=== PATIENT | male | born 1945 | race Caucasian/White ===

== ENCOUNTER 2016-08-05 10:24 | Inpatient (IN) | payer OTHER ==
--- NOTE | 2016-08-05 11:33 | ED PDOC ---
HPI: Back Chief Complaint (Provider): back pain History Per: Patient (71 y/o male with intractable back pain associated with lower extremity weakness. Patient has been using walker for assistance with walking since May. Patient to have surgery tomorrow am by Dr. Hilario. Has additional h/o DM/HTN/Varicose veins. Recently stopped eloquis for prevention of thrombosis (b/c of varicose veins)) <Mik Glass - Last Filed: 08/05/16 11:36> <Paola Moreno - Last Filed: 08/05/16 11:45> Time Seen by Provider: 08/05/16 10:40 Chief Complaint (Nursing): Back Pain Past Medical History Reviewed: Historical Data, Nursing Documentation, Vital Signs Vital Signs: Last Vital Signs Temp 97 F L 08/05/16 10:30 Pulse 52 L 08/05/16 10:30 Resp BP 129/57 L 08/05/16 10:30 Pulse Ox 98 08/05/16 10:38 - Medical History PMH: Diabetes, HTN - Family History Family History: States: No Known Family Hx <Mik Glass B - Last Filed: 08/05/16 11:36> Vital Signs: Last Vital Signs Temp 97 F L 08/05/16 10:30 Pulse 52 L 08/05/16 10:30 Resp BP 129/57 L 08/05/16 10:30 Pulse Ox 98 08/05/16 11:36 <Paola Moreno - Last Filed: 08/05/16 11:45> - Allergies Allergies/Adverse Reactions: Allergies Allergy/AdvReac Type Severity Reaction Status Date / Time No Known Allergies Allergy Verified 08/05/16 10:37 Review of Systems ROS Statement: Except As Marked, All Systems Reviewed And Found Negative <Mik Glass - Last Filed: 08/05/16 11:36> Physical Exam - Reviewed Nursing Documentation Reviewed: Yes Vital Signs Reviewed: Yes - Physical Exam Appears: Positive for: Well, Non-toxic, No Acute Distress Head Exam: Positive for: ATRAUMATIC, NORMAL INSPECTION, NORMOCEPHALIC Skin: Positive for: Normal Color, Warm, DRY Eye Exam: Positive for: EOMI, Normal appearance, PERRL ENT: Positive for: Normal ENT Inspection Neck: Positive for: Normal, Painless ROM Cardiovascular/Chest: Positive for: Regular Rate, Rhythm Respiratory: Positive for: CNT, Normal Breath Sounds Gastrointestinal/Abdominal: Positive for: Normal Exam, Bowel Sounds, Soft Back: Negative for: Vertebral Tenderness ( paralumbar tenderness) Extremity: Positive for: Normal ROM Neurologic/Psych: Positive for: Alert, Oriented <Mik Glass - Last Filed: 08/05/16 11:36> - ECG O2 Sat by Pulse Oximetry: 98 - Progress ED Course And Treament: d/w Dr. Graf. EKG: sinus bradycardia 51 bpm; no ectopy no acute changes CXR: <Mik Glass - Last Filed: 08/05/16 11:36> - Laboratory Results Result Diagrams: 08/05/16 11:09 <Paola Moreno - Last Filed: 08/05/16 11:45> Medical Decision Making Medical Decision Making: Patient has intractable back pain and scheduled for surgery. <Paola Moreno - Last Filed: 08/05/16 11:45> Disposition - Patient ED Disposition Is Patient to be Admitted: Yes - Disposition Disposition Time: 10:58 - Pt Status Changed To: Hospital Disposition Of: Inpatient - Admit Certification Admit to Inpatient:: After my assessment, the patient will require hospitalization for at least two midnights. This is because of the severity of symptoms shown, intensity of services needed, and/or the medical risk in this patient being treated as an outpatient. <Mik Glass - Last Filed: 08/05/16 11:36> <Paola Moreno - Last Filed: 08/05/16 11:45> - Clinical Impression Clinical Impression: Back pain - Disposition Condition: FAIR
[2016-08-05 11:40] LABS: BASO # 0.1 K/uL (0.0-0.2); BASO % 0.7 % (0.0-2.0); EOS # 0.2 K/uL (0.0-0.7); EOS % 1.9 % (0.0-4.0); HEMATOCRIT 41.7 % (35.0-51.0); LYMPH # 2.3 K/uL (1.0-4.3); LYMPH % 24.1 % (20.0-40.0); MEAN CELL VOLUME 91.4 fl (80.0-94.0); MEAN CORPUSCULAR HEMOGLOBIN 30.9 pg (27.0-31.0); MEAN CORPUSCULAR HGB CONC 33.8 g/dL (33.0-37.0); MEAN PLATELET VOLUME 7.6 fl (7.2-11.7); MONO # 0.9 K/uL (0.0-0.8); MONO % 9.2 % (0.0-10.0); NEUT # 6.2 K/uL (1.8-7.0); NEUT % 64.1 % (50.0-75.0); RED CELL DISTRIBUTION WIDTH 13.9 % (11.5-14.5); WHITE BLOOD COUNT 9.7 K/uL (4.8-10.8)
[2016-08-05 11:46] LABS: ALB/GLOB RATIO 1.2 (1.0-2.1); ALKALINE PHOSPHATASE 83 U/L (38-126); ALT/SGPT 44 U/L (21-72); AST/SGOT 35 U/L (17-59); BILIRUBIN,TOTAL 0.5 mg/dl (0.2-1.3); BLOOD UREA NITROGEN 15 mg/dl (9-20); CALCIUM 9.4 mg/dL (8.4-10.2); CARBON DIOXIDE 29 mmol/L (22-30); CHLORIDE 103 mmol/L (98-107); GFR AFRICAN-AMERICAN > 60; GLUCOSE,RANDOM 113 mg/dL (75-110); POTASSIUM 4.4 MMOL/L (3.6-5.0); SODIUM 142 mmol/l (132-148); TOTAL PROTEIN 8.1 G/DL (6.3-8.2)
[2016-08-05 11:51] LABS: PARTIAL THROMBOPLASTIN TIME 33.3 Seconds (25.6-37.1)
--- NOTE | 2016-08-05 14:01 | RAD ---
HISTORY: routine COMPARISON: No prior. FINDINGS: LUNGS: Mild bibasilar atelectasis ; developing infiltrates could be excluded followup radiographs. Central pulmonary vasculature is slightly increased. PLEURA: No significant pleural effusion identified, no pneumothorax apparent. CARDIOVASCULAR: Heart is enlarged. Aorta is ectatic and uncoiled. OSSEOUS STRUCTURES: Mild degenerative changes of the right shoulder girdle. Questionable old healed fracture deformity right 3rd rib. . VISUALIZED UPPER ABDOMEN: Normal. OTHER FINDINGS: None. IMPRESSION: Mild bibasilar atelectasis ; developing infiltrates could be excluded followup radiographs. Central pulmonary vasculature is slightly increased.
[2016-08-05] MEDS ORDERED: Lidocaine 5% Patch TD PRN (16:25)
[2016-08-05] MEDS ORDERED: Glucagon Recombinant 1 mg Inj IM PRN (16:33)
[2016-08-05] MEDS ORDERED: Dextrose 50% SYRINGE Inj (50 ml) IV PRN (16:33)
[2016-08-05] MEDS ORDERED: Enoxaparin 40 mg Syringe SC SCH (22:00)
[2016-08-06] MEDS ORDERED: Lidocaine 2% w Epi 1:100,000 Inj IJ ONE (07:34)
[2016-08-06] MEDS ORDERED: Bupivacaine HCl 0.5% PF (10 ml) Inj ONE (07:34)
[2016-08-06] MEDS ORDERED: Absorbable Gelatin Sponge Size 100 ONE ×2 (07:34→07:35)
[2016-08-06] MEDS ORDERED: Thrombin Topical 5,000 IU Spray Kit ONE (07:35)
--- NOTE | 2016-08-06 07:50 | CP.PCM.CON ---
History of Present Illness - History of Present Illness History of Present Illness: [address] Hilario was asked to see,pt admitted with intractable LBP radiating to right buttock and RLE with paresthesias,weakness and inability to ambulate x 2-3 mos,pt with ongoing LBP x many years,he is a home health aid, failed conservative management with meds and therapy,MRI showing multilevel lumbar spondylosis worse at L2-3 with severe stenosis, he can only ambulate with a walker and currently unable to work,surgical and non surgical options d/ w pt and Dr. Hilario,due to worsening symptoms,will proceed with a proposed Lumbar laminectomy L2-3,pt was on Eliquis for longstanding afib,denies bowel, bladder incontinance or fall. Review of Systems - Review of Systems Systems not reviewed;Unavailable: Acuity of Condition - Cardiovascular Additional comments: Hx afib,currently in NS[facility],on Eliqis,in past was on Pradaxa,PVD with varicose veins and [place],last LE duplex 05/26 neg - Respiratory Respiratory: Snoring - Musculoskeletal Musculoskeletal: Numbness, Radiating Pain into Limb, Tingling - Neurological Neurological: As Per HPI - Endocrine Additional Comments: Hx DM Past Patient History - Infectious Disease Hx of Infectious Diseases: None - Tetanus Immunizations Tetanus Immunization: Unknown - Past Medical History & Family History Past Medical History?: Yes - Past Social History Smoking Status: Former Smoker Chewing Tobacco Use: No Cigar Use: No Occupation: Disabled HomeHealth Aid Alcohol: Occasional Drugs: Denies Home Situation {Lives}: With Family Domestic Violence: Negative - CARDIAC Hx Cardiac Disorders: Yes - ENDOCRINE/METABOLIC Hx Diabetes Mellitus Type 2: Yes - MUSCULOSKELETAL/RHEUMATOLOGICAL Hx Falls: Yes - PSYCHIATRIC Hx Substance Use: No - SURGICAL HISTORY Other/Comment: varicose vein surgery as per patient. nose SX - ANESTHESIA Hx Anesthesia: Yes Hx Anesthesia Reactions: No Meds Allergies/Adverse Reactions: Allergies Allergy/AdvReac Type Severity Reaction Status Date / Time No Known Allergies Allergy Verified 08/05/16 10:37 - Medications Medications: Current Medications Amlodipine Besylate (Norvasc) 10 mg PO DAILY TARYN Dextrose (Dextrose 50% Inj) 0 ml IV STAT PRN; Protocol PRN Reason: Hyglycemia Protocol Dextrose (Glutose 15) 0 gm PO ONCE PRN; Protocol PRN Reason: Hypoglycemia Protocol Gabapentin (Neurontin) 300 mg PO TID [facility] Last Admin: 08/05/16 17:28 Dose: 300 mg Glucagon (Glucagen Diagnostic Kit) 0 mg IM STAT PRN; Protocol PRN Reason: Hypoglycemia Protocol Insulin Human Lispro (Humalog) 0 units SC ACTID [facility] PRN Reason: Protocol Lidocaine (Lidoderm) 1 ea TD DAILY PRN PRN Reason: BACK PAIN Metformin HCl (Glucophage) 500 mg PO BID [facility] Last Admin: 08/05/16 17:31 Dose: Not Given Metoprolol Tartrate (Lopressor) 50 mg PO BID [facility] Last Admin: 08/05/16 17:29 Dose: Not Given Sitagliptin Phosphate (Januvia) 100 mg PO DAILY [facility] Valsartan (Diovan) 320 mg PO DAILY [facility] Physical Exam - Constitutional Appears: Well, Non-toxic, No Acute Distress - Head Exam Head Exam: ATRAUMATIC, NORMAL INSPECTION, NORMOCEPHALIC - Eye Exam Eye Exam: EOMI, Normal appearance, PERRL - ENT Exam ENT Exam: Mucous Membranes Moist - Neck Exam Neck exam: Positive for: Normal Inspection - Respiratory Exam Respiratory Exam: Clear to Auscultation Bilateral, NORMAL BREATHING PATTERN - Cardiovascular Exam Cardiovascular Exam: REGULAR RHYTHM - GI/Abdominal Exam GI & Abdominal Exam: Normal Bowel Sounds, Soft - Rectal Exam Rectal Exam: Deferred Additional comments: no pelvic paresthesias - Extremities Exam Extremities exam: Positive for: normal inspection, pedal pulses present Additional comments: calves soft,NT - Back Exam Back exam: vertebral tenderness - Neurological Exam Neurological exam: Alert, Oriented x3 Additional comments: Pt antigravity x 4 with BLE weakness,paresthesias RLE,depressed DTR's,neg babinski - Psychiatric Exam Psychiatric exam: Normal Affect, Normal Mood - Skin Skin Exam: Dry, Intact Results - Vital Signs Recent Vital Signs: Last Vital Signs Temp 97.7 F 08/06/16 06:18 Pulse 52 L 08/06/16 06:18 Resp 20 08/06/16 06:18 BP 127/64 08/06/16 06:18 Pulse Ox 95 08/06/16 06:18 - Labs Result Diagrams: 08/07/16 05:00 08/07/16 05:00 Labs: Laboratory Results - last 24 hr 08/05/16 08/05/16 08/05/16 11:09 11:09 11:09 WBC 9.7 RBC 4.56 Hgb 14.1 Hct 41.7 MCV 91.4 MCH 30.9 MCHC 33.8 RDW 13.9 Plt Count 256 MPV 7.6 Neut % (Auto) 64.1 Lymph % (Auto) 24.1 [place] % (Auto) 9.2 Eos % (Auto) 1.9 Baso % (Auto) 0.7 Neut # 6.2 Lymph # 2.3 [place] # 0.9 H Eos # 0.2 Baso # 0.1 PT 10.6 INR 0.9 APTT 33.3 Sodium 142 Potassium 4.4 Chloride 103 Carbon Dioxide 29 Anion Gap 15 BUN 15 Creatinine 0.9 Est GFR ( Amer) > 60 Est GFR (Non-Af Amer) > 60 POC Glucose (mg/dL) Random Glucose 113 H Calcium 9.4 Total Bilirubin 0.5 AST 35 ALT 44 Alkaline Phosphatase 83 Total Protein 8.1 Albumin 4.4 Globulin 3.7 Albumin/Globulin Ratio 1.2 Blood Type Blood Type Confirm Antibody Screen BBK History Checked 08/05/16 08/05/16 08/05/16 11:09 12:50 16:41 WBC RBC Hgb Hct MCV MCH MCHC RDW Plt Count MPV Neut % (Auto) Lymph % (Auto) [place] % (Auto) Eos % (Auto) Baso % (Auto) Neut # Lymph # [place] # Eos # Baso # PT INR APTT Sodium Potassium Chloride Carbon Dioxide Anion Gap BUN Creatinine Est GFR ( Amer) Est GFR (Non-Af Amer) POC Glucose (mg/dL) 85 Random Glucose Calcium Total Bilirubin AST ALT Alkaline Phosphatase Total Protein Albumin Globulin Albumin/Globulin Ratio Blood Type O POSITIVE Blood Type Confirm O POSITIVE Antibody Screen Negative BBK History Checked No verified bt 08/05/16 08/06/16 20:52 05:40 WBC RBC Hgb Hct MCV MCH MCHC RDW Plt Count MPV Neut % (Auto) Lymph % (Auto) [place] % (Auto) Eos % (Auto) Baso % (Auto) Neut # Lymph # [place] # Eos # Baso # PT INR APTT Sodium Potassium Chloride Carbon Dioxide Anion Gap BUN Creatinine Est GFR ( Amer) Est GFR (Non-Af Amer) POC Glucose (mg/dL) 98 114 H Random Glucose Calcium Total Bilirubin AST ALT Alkaline Phosphatase Total Protein Albumin Globulin Albumin/Globulin Ratio Blood Type Blood Type Confirm Antibody Screen BBK History Checked - Impressions Impression: MRI results reviewed by Dr. Hilario Assessment & Plan - Assessment and Plan (Free Text) Assessment: 71 yo male with Multi level lumbar spondylosis,canal stenosis worse at L2-3 with motor weakness and radiculapathy. Plan: pt has failed conservative management worsening inability to ambulate and BLE weakness,risks and benefits of surgery d/w pt,informed symptoms may or may not improve with surgery,expressed understanding and wishes to proceed.
[2016-08-06] MEDS ORDERED: Rocuronium 10 mg/ml (5 ml) ONE (08:00)
[2016-08-06] MEDS ORDERED: Succinylcholine 200 mg/10 ml Inj IV ONE (08:00)
[2016-08-06] MEDS ORDERED: Phenylephrine 10 mg/ml Inj ONE (08:00)
[2016-08-06] MEDS ORDERED: Propofol 10 mg/ml Inj (20 ML) ONE (08:00)
[2016-08-06] MEDS ORDERED: Midazolam 2 MG/2 ML VIAL ONE (08:00)
[2016-08-06] MEDS ORDERED: Lidocaine 4% (Laryng-O-Jet) Kit MM ONE (08:01)
[2016-08-06] MEDS: Insulin Lispro (humaLOG) 100 Units/ml Inj SC SCH ×3 (08:25→18:12)
[2016-08-06] MEDS ORDERED: ePHEDrine 50 mg/ml Inj ONE (08:39)
[2016-08-06 09:12] LABS: RBC URINE 2 /hpf (0-3); URINE BILIRUBIN NEGATIVE (NEGATIVE); URINE BLOOD NEGATIVE (NEGATIVE); URINE COLOR YELLOW (YELLOW); URINE GLUCOSE (UA) NEG (Normal); URINE KETONE NEGATIVE (NEGATIVE); URINE LEUKOCYTE ESTERASE NEG Leu/uL (Negative); URINE PROTEIN NEGATIVE (NEGATIVE); URINE UROBILINOGEN 0.2-1.0 mg/dL (0.2-1.0); WBC URINE < 1 /hpf (0-5)
--- NOTE | 2016-08-06 09:12 | CP.PCM.HP ---
<Aurora Byers - Last Filed: 08/06/16 11:09> History of Present Illness - History of Present Illness History of Present Illness: 71M MHx of HTN, DM, varicose veins p/w worsening lower back pain without bowel or bladder incontinence. Currently patient denies SOB, chest pain, palpitations , N/V, abdominal pain, dysuria. Present on Admission - Present on Admission Any Indicators Present on Admission: No Review of Systems - Musculoskeletal Musculoskeletal: Back Pain Past Patient History - Past Social History Smoking Status: Former Smoker - CARDIAC Hx Cardiac Disorders: Yes - ENDOCRINE/METABOLIC Hx Diabetes Mellitus Type 2: Yes - MUSCULOSKELETAL/RHEUMATOLOGICAL Hx Falls: Yes - PSYCHIATRIC Hx Substance Use: No - SURGICAL HISTORY Other/Comment: varicose vein surgery as per patient. nose SX - ANESTHESIA Hx Anesthesia: Yes Hx Anesthesia Reactions: No Meds Allergies/Adverse Reactions: Allergies Allergy/AdvReac Type Severity Reaction Status Date / Time No Known Allergies Allergy Verified 08/05/16 10:37 Physical Exam - Constitutional Appears: Well, Non-toxic, No Acute Distress - Head Exam Head Exam: ATRAUMATIC, NORMAL INSPECTION - Eye Exam Eye Exam: EOMI, PERRL - ENT Exam ENT Exam: Mucous Membranes Moist, Normal Exam - Respiratory Exam Respiratory Exam: Clear to Auscultation Bilateral, NORMAL BREATHING PATTERN. absent: Rales, Wheezes - Cardiovascular Exam Cardiovascular Exam: REGULAR RHYTHM. absent: JVD - Extremities Exam Extremities exam: Positive for: full ROM, normal capillary refill, pedal pulses present. Negative for: pedal edema - Neurological Exam Neurological exam: Alert, Oriented x3 - Skin Skin Exam: Normal Color, Warm Results - Vital Signs Recent Vital Signs: Last Vital Signs Temp 36.6 C 08/06/16 08:02 Pulse 52 L 08/06/16 08:38 Resp 20 08/06/16 08:02 BP 135/69 08/06/16 08:02 Pulse Ox 98 08/06/16 08:02 - Labs Result Diagrams: 08/05/16 11:09 08/05/16 11:09 Labs: Laboratory Results - last 24 hr 08/05/16 08/05/16 08/05/16 11:09 11:09 11:09 WBC 9.7 RBC 4.56 Hgb 14.1 Hct 41.7 MCV 91.4 MCH 30.9 MCHC 33.8 RDW 13.9 Plt Count 256 MPV 7.6 Neut % (Auto) 64.1 Lymph % (Auto) 24.1 [place] % (Auto) 9.2 Eos % (Auto) 1.9 Baso % (Auto) 0.7 Neut # 6.2 Lymph # 2.3 [place] # 0.9 H Eos # 0.2 Baso # 0.1 PT 10.6 INR 0.9 APTT 33.3 Sodium 142 Potassium 4.4 Chloride 103 Carbon Dioxide 29 Anion Gap 15 BUN 15 Creatinine 0.9 Est GFR ( Amer) > 60 Est GFR (Non-Af Amer) > 60 POC Glucose (mg/dL) Random Glucose 113 H Calcium 9.4 Total Bilirubin 0.5 AST 35 ALT 44 Alkaline Phosphatase 83 Total Protein 8.1 Albumin 4.4 Globulin 3.7 Albumin/Globulin Ratio 1.2 Blood Type Blood Type Confirm Antibody Screen BBK History Checked 08/05/16 08/05/16 08/05/16 11:09 12:50 16:41 WBC RBC Hgb Hct MCV MCH MCHC RDW Plt Count MPV Neut % (Auto) Lymph % (Auto) [place] % (Auto) Eos % (Auto) Baso % (Auto) Neut # Lymph # [place] # Eos # Baso # PT INR APTT Sodium Potassium Chloride Carbon Dioxide Anion Gap BUN Creatinine Est GFR ( Amer) Est GFR (Non-Af Amer) POC Glucose (mg/dL) 85 Random Glucose Calcium Total Bilirubin AST ALT Alkaline Phosphatase Total Protein Albumin Globulin Albumin/Globulin Ratio Blood Type O POSITIVE Blood Type Confirm O POSITIVE Antibody Screen Negative BBK History Checked No verified bt 08/05/16 08/06/16 20:52 05:40 WBC RBC Hgb Hct MCV MCH MCHC RDW Plt Count MPV Neut % (Auto) Lymph % (Auto) [place] % (Auto) Eos % (Auto) Baso % (Auto) Neut # Lymph # [place] # Eos # Baso # PT INR APTT Sodium Potassium Chloride Carbon Dioxide Anion Gap BUN Creatinine Est GFR ( Amer) Est GFR (Non-Af Amer) POC Glucose (mg/dL) 98 114 H Random Glucose Calcium Total Bilirubin AST ALT Alkaline Phosphatase Total Protein Albumin Globulin Albumin/Globulin Ratio Blood Type Blood Type Confirm Antibody Screen BBK History Checked Assessment & Plan - Assessment and Plan (Free Text) Assessment: 71M with L2-3 spondylosis for surgical intervention with laminectomy. - NPO/IVF - anticoagulant, antiplatelet HELD - DM, HTN medications - Surgery with Dr Hilario <Sundeep Garcia - Last Filed: 08/11/16 13:03> Results - Vital Signs Recent Vital Signs: Last Vital Signs Temp 99.3 F 08/11/16 12:50 Pulse 60 08/11/16 12:50 Resp 20 08/11/16 12:50 BP 130/70 08/11/16 12:50 Pulse Ox 97 08/11/16 12:50 - Labs Result Diagrams: 08/08/16 05:05 08/08/16 05:05 Labs: Laboratory Results - last 24 hr 08/10/16 08/10/16 08/11/16 15:40 21:27 05:27 POC Glucose (mg/dL) 121 H 118 H 110 08/11/16 11:22 POC Glucose (mg/dL) 164 H Assessment & Plan (1) Lumbar stenosis Status: Acute (2) Lumbar spondylosis Status: Acute (3) Intractable low back pain Status: Acute (4) Hypertension Status: Acute (5) Diabetes mellitus type 2 in obese Status: Acute (6) DVT (deep venous thrombosis) Status: Acute - Assessment and Plan (Free Text) Plan: I was present during evaluation and discussed with Dr Byers. Sundeep Garcia M.D.
--- NOTE | 2016-08-06 09:50 | CP.PCM.HP ---
History of Present Illness - History of Present Illness History of Present Illness: This is a 71 y/o male with hx of HTn adn DM admitted for intractable back pain. He was tried on conservative measures but to no avail. His intractable back pain worsened and was suggested surgery. He has so much pain that he sought eval at the ER. MRi showed lumbar spondylosis with lumbar stenosis worst at L2L3 level. he has been compliant with his meds. He follows up with a Street Worker. \ Present on Admission - Present on Admission Any Indicators Present on Admission: No History of DVT/PE: No History of Uncontrolled Diabetes: No Urinary Catheter: No Decubitus Ulcer Present: No Review of Systems - Musculoskeletal Musculoskeletal: Arthralgias, Back Pain, Radiating Pain into Limb Past Patient History - Past Social History Smoking Status: Former Smoker - CARDIAC Hx Cardiac Disorders: Yes - ENDOCRINE/METABOLIC Hx Diabetes Mellitus Type 2: Yes - MUSCULOSKELETAL/RHEUMATOLOGICAL Hx Falls: Yes - PSYCHIATRIC Hx Substance Use: No - SURGICAL HISTORY Other/Comment: varicose vein surgery as per patient. nose SX - ANESTHESIA Hx Anesthesia: Yes Hx Anesthesia Reactions: No Meds Allergies/Adverse Reactions: Allergies Allergy/AdvReac Type Severity Reaction Status Date / Time No Known Allergies Allergy Verified 08/05/16 10:37 Physical Exam - Head Exam Head Exam: NORMAL INSPECTION - Eye Exam Eye Exam: Normal appearance - ENT Exam ENT Exam: Mucous Membranes Moist - Respiratory Exam Respiratory Exam: Clear to Auscultation Bilateral, NORMAL BREATHING PATTERN - Cardiovascular Exam Cardiovascular Exam: REGULAR RHYTHM - GI/Abdominal Exam GI & Abdominal Exam: Normal Bowel Sounds Results - Vital Signs Recent Vital Signs: Last Vital Signs Temp 97.9 F 08/06/16 08:02 Pulse 52 L 08/06/16 08:38 Resp 20 08/06/16 08:02 BP 135/69 08/06/16 08:02 Pulse Ox 98 08/06/16 08:02 - Labs Result Diagrams: 08/05/16 11:09 08/05/16 11:09 Labs: Laboratory Results - last 24 hr 08/05/16 08/05/16 08/05/16 11:09 11:09 11:09 WBC 9.7 RBC 4.56 Hgb 14.1 Hct 41.7 MCV 91.4 MCH 30.9 MCHC 33.8 RDW 13.9 Plt Count 256 MPV 7.6 Neut % (Auto) 64.1 Lymph % (Auto) 24.1 [place] % (Auto) 9.2 Eos % (Auto) 1.9 Baso % (Auto) 0.7 Neut # 6.2 Lymph # 2.3 [place] # 0.9 H Eos # 0.2 Baso # 0.1 PT 10.6 INR 0.9 APTT 33.3 Sodium 142 Potassium 4.4 Chloride 103 Carbon Dioxide 29 Anion Gap 15 BUN 15 Creatinine 0.9 Est GFR ( Amer) > 60 Est GFR (Non-Af Amer) > 60 POC Glucose (mg/dL) Random Glucose 113 H Calcium 9.4 Total Bilirubin 0.5 AST 35 ALT 44 Alkaline Phosphatase 83 Total Protein 8.1 Albumin 4.4 Globulin 3.7 Albumin/Globulin Ratio 1.2 Blood Type Blood Type Confirm Antibody Screen BBK History Checked 08/05/16 08/05/16 08/05/16 11:09 12:50 16:41 WBC RBC Hgb Hct MCV MCH MCHC RDW Plt Count MPV Neut % (Auto) Lymph % (Auto) [place] % (Auto) Eos % (Auto) Baso % (Auto) Neut # Lymph # [place] # Eos # Baso # PT INR APTT Sodium Potassium Chloride Carbon Dioxide Anion Gap BUN Creatinine Est GFR ( Amer) Est GFR (Non-Af Amer) POC Glucose (mg/dL) 85 Random Glucose Calcium Total Bilirubin AST ALT Alkaline Phosphatase Total Protein Albumin Globulin Albumin/Globulin Ratio Blood Type O POSITIVE Blood Type Confirm O POSITIVE Antibody Screen Negative BBK History Checked No verified bt 08/05/16 08/06/16 20:52 05:40 WBC RBC Hgb Hct MCV MCH MCHC RDW Plt Count MPV Neut % (Auto) Lymph % (Auto) [place] % (Auto) Eos % (Auto) Baso % (Auto) Neut # Lymph # [place] # Eos # Baso # PT INR APTT Sodium Potassium Chloride Carbon Dioxide Anion Gap BUN Creatinine Est GFR ( Amer) Est GFR (Non-Af Amer) POC Glucose (mg/dL) 98 114 H Random Glucose Calcium Total Bilirubin AST ALT Alkaline Phosphatase Total Protein Albumin Globulin Albumin/Globulin Ratio Blood Type Blood Type Confirm Antibody Screen BBK History Checked Assessment & Plan (1) Lumbar stenosis Status: Acute (2) Lumbar spondylosis Status: Acute (3) Intractable low back pain Status: Acute (4) Hypertension Status: Acute (5) Diabetes mellitus type 2 in obese Status: Acute - Assessment and Plan (Free Text) Plan: NPO Pain meds medically stable for surgery neurosurgical eval will follow up post op
[2016-08-06] MEDS ORDERED: Lactated Ringer's 1,000 ML IV ONE ×2 (10:00→11:11)
[2016-08-06] MEDS ORDERED: Neostigmine Methylsulfate 3mg/3ml Syringe IV ONE (10:50)
[2016-08-06] MEDS ORDERED: HEMOSTATIC MATRIX 10 ML DIS.NEEDLE TOP ONE (11:10)
[2016-08-06] MEDS ORDERED: Bupivacaine HCl 0.5% PF (10 ml) Inj IJ ONE (11:19)
[2016-08-06] MEDS ORDERED: HYDROmorphone 0.5 mg/0.5 ml ISec ONE (11:43)
[2016-08-06] MEDS ORDERED: HYDROmorphone 0.5 mg/0.5 ml ISec IVP PRN (11:45)
[2016-08-06] MEDS ORDERED: Oxycodone/Acetaminophen 5/325 mg Tab PO PRN (14:56)
--- NOTE | 2016-08-06 16:03 | RAD ---
PROCEDURE: Lumbar epidural injections HISTORY: LUMBAR LAMINECTOMY COMPARISON: None TECHNIQUE: Standard FINDINGS: Total fluoroscopic time (continuous mode) utilized during the procedure: 17.7 seconds. Submitted images from the current procedure: 1.0 IMPRESSION: Less than 1 hr fluoroscopic time utilized during performance of the procedure.
[2016-08-06] MEDS: ceFAZolin 1 GM in Sodium Chloride 0.9% 100 ML IVPB SCH (17:48)
[2016-08-07] MEDS: ceFAZolin 1 GM in Sodium Chloride 0.9% 100 ML IVPB SCH ×3 (00:46→18:07)
[2016-08-07] MEDS: Lactated Ringer's 1,000 ML IV SCH ×2 (00:49→04:59)
[2016-08-07 07:02] LABS: BLOOD UREA NITROGEN 14 mg/dl (9-20); CALCIUM 8.9 mg/dL (8.4-10.2); CARBON DIOXIDE 26 mmol/L (22-30); CHLORIDE 105 mmol/L (98-107); GFR AFRICAN-AMERICAN > 60; GLUCOSE,RANDOM 111 mg/dL (75-110); SODIUM 139 mmol/l (132-148)
[2016-08-07 07:05] LABS: BASO % 0.1 % (0.0-2.0); EOS # 0.1 K/uL (0.0-0.7); EOS % 0.5 % (0.0-4.0); HEMATOCRIT 36.7 % (35.0-51.0); LYMPH # 2.6 K/uL (1.0-4.3); LYMPH % 20.9 % (20.0-40.0); MEAN CELL VOLUME 90.9 fl (80.0-94.0); MEAN CORPUSCULAR HEMOGLOBIN 30.3 pg (27.0-31.0); MEAN CORPUSCULAR HGB CONC 33.3 g/dL (33.0-37.0); MEAN PLATELET VOLUME 7.8 fl (7.2-11.7); MONO # 0.9 K/uL (0.0-0.8); MONO % 7.4 % (0.0-10.0); NEUT # 8.8 K/uL (1.8-7.0); NEUT % 71.1 % (50.0-75.0); RED CELL DISTRIBUTION WIDTH 13.6 % (11.5-14.5); WHITE BLOOD COUNT 12.3 K/uL (4.8-10.8)
--- NOTE | 2016-08-07 10:42 | US ---
PROCEDURE: Bilateral lower extremity venous duplex Doppler. HISTORY: post op r/o DVT COMPARISON: None available. TECHNIQUE: Bilateral common femoral, superficial femoral, popliteal and posterior tibial veins were evaluated. Flow was assessed with color Doppler, compressibility, assessment of phasic flow and augmentation response. FINDINGS: There is a nonocclusive thrombus in the right profunda femoris vein. COMMON FEMORAL VEIN: Right CFV: Normal flow and compressibility. Left CFV: Normal flow and compressibility. SUPERFICIAL FEMORAL VEIN: Right SFV: Normal flow and compressibility. Left SFV: Normal flow and compressibility. POPLITEAL VEIN: Right Popliteal: Nonocclusive thrombus in the distal popliteal vein. The proximal and mid popliteal veins are patent. Left Popliteal: Normal flow and compressibility. POSTERIOR TIBIAL VEIN: Right PTV: Normal flow and compressibility. Left PTV: Normal flow and compressibility. OTHER FINDINGS: None. IMPRESSION: 1. Partially occlusive thrombosis in the right distal popliteal and profunda femoris veins. 2. No evidence of deep venous thrombosis in the left lower extremity. Important findings were conveyed to nurse Harper on 08/07/2016 at [address] mri technologist Shira.
--- NOTE | 2016-08-07 11:50 | CARD ---
APPROVED REPORT EKG Measurement Heart [id number] <Conclusion> Sinus bradycardia Otherwise normal ECG
[2016-08-07] MEDS: Insulin Lispro (humaLOG) 100 Units/ml Inj SC SCH ×2 (12:04→17:47)
--- NOTE | 2016-08-07 13:56 | CP.PCM.CON ---
History of Present Illness - History of Present Illness History of Present Illness: Patient is on POD 1 status post lumbar laminectomy. Patient underwent venous ultrasound today as I understand a probationary measure due to him being off anticoagulation and with limited ambulation. Ultrasound was positive for right popliteal and deep femoral thrombosis. Vascular surgery consult was requested for management of right lower extremity DVT. Patient denies known history of DVT in the past although he apparently underwent right leg varicose vein stripping years ago [place] [facility]. He has no pulmonary symptoms. He denies significant pain of calf tenderness in the right lower extremity which is not grossly swollen. Patient has been placed on anticoagulation within last year, per his report, for atrial fibrillation and was taken off blood thinners prior to spine surgery. Review of Systems - Review of Systems Systems not reviewed;Unavailable: Respiratory Distress - Constitutional Constitutional: absent: Fatigue, Malaise - EENT Eyes: absent: Change in Vision, Pain Ears: absent: Ear Pain, Tinnitus, Dizziness Nose/Mouth/Throat: absent: Sore Throat, Throat Swelling, Neck Pain - Cardiovascular Cardiovascular: absent: Chest Pain, Claudication, Diaphoresis, Dyspnea, Leg Edema, Palpitations - Respiratory Respiratory: absent: Cough, Dyspnea, Dyspnea on Exertion, Pain on Inspiration, Pain with Coughing - Gastrointestinal Gastrointestinal: absent: Abdominal Pain, Constipation, Hematemesis, Hematochezia - Genitourinary Genitourinary: absent: Difficulty Urinating, Dysuria, Hematuria - Musculoskeletal Musculoskeletal: Numbness, Tingling. absent: Joint Swelling, Limited Range of Motion, Myalgias - Neurological Neurological: Numbness, Sensory Deficit. absent: Abnormal Gait, Dizziness, Focal Weakness - Psychiatric Psychiatric: absent: Anxiety - Endocrine Endocrine: absent: Polydipsia, Polyphagia, Polyuria - Hematologic/Lymphatic Hematologic: absent: Easy Bruising Past Patient History - Past Social History Smoking Status: Former Smoker - CARDIAC Hx Cardiac Disorders: Yes - ENDOCRINE/METABOLIC Hx Diabetes Mellitus Type 2: Yes - MUSCULOSKELETAL/RHEUMATOLOGICAL Hx Falls: Yes - PSYCHIATRIC Hx Substance Use: No - SURGICAL HISTORY Other/Comment: varicose vein surgery as per patient. nose SX - ANESTHESIA Hx Anesthesia: Yes Hx Anesthesia Reactions: No Meds Allergies/Adverse Reactions: Allergies Allergy/AdvReac Type Severity Reaction Status Date / Time No Known Allergies Allergy Verified 08/05/16 10:37 - Medications Medications: Current Medications Amlodipine Besylate (Norvasc) 10 mg PO DAILY [facility] Last Admin: 08/07/16 08:36 Dose: 10 mg Dextrose (Dextrose 50% Inj) 0 ml IV STAT PRN; Protocol PRN Reason: Hyglycemia Protocol Dextrose (Glutose 15) 0 gm PO ONCE PRN; Protocol PRN Reason: Hypoglycemia Protocol Gabapentin (Neurontin) 300 mg PO TID [facility] Last Admin: 08/07/16 12:04 Dose: 300 mg Glucagon (Glucagen Diagnostic Kit) 0 mg IM STAT PRN; Protocol PRN Reason: Hypoglycemia Protocol Cefazolin Sodium 1 gm/ Sodium (Chloride) 100 mls @ 100 mls/hr IVPB Q8 [facility] Last Admin: 08/07/16 08:40 Dose: 100 mls/hr Insulin Human Lispro (Humalog) 0 units SC ACTID [facility] PRN Reason: Protocol Last Admin: 08/07/16 12:04 Dose: Not Given Lidocaine (Lidoderm) 1 ea TD DAILY PRN PRN Reason: BACK PAIN Metformin HCl (Glucophage) 500 mg PO BID [facility] Last Admin: 08/05/16 17:31 Dose: Not Given Metoprolol Tartrate (Lopressor) 50 mg PO BID [facility] Last Admin: 08/07/16 08:37 Dose: 50 mg Oxycodone/Acetaminophen (Percocet 5/325 Mg Tab) 1 tab PO Q6 PRN PRN Reason: Pain, severe (8-10) Stop: 08/09/16 14:57 Sitagliptin Phosphate (Januvia) 100 mg PO DAILY [facility] Tramadol HCl (Ultram) 50 mg PO Q6 PRN PRN Reason: Pain, moderate (4-7) Valsartan (Diovan) 320 mg PO DAILY [facility] Last Admin: 08/07/16 08:37 Dose: 320 mg Physical Exam - Constitutional Appears: Non-toxic, No Acute Distress - Head Exam Head Exam: NORMAL INSPECTION, NORMOCEPHALIC - Eye Exam Eye Exam: EOMI, Normal appearance, PERRL Pupil Exam: NORMAL ACCOMODATION - ENT Exam ENT Exam: Mucous Membranes Moist, Normal Exam - Neck Exam Neck exam: Positive for: Normal Inspection - Respiratory Exam Respiratory Exam: Clear to Auscultation Bilateral, NORMAL BREATHING PATTERN. absent: Accessory Muscle Use, Respiratory Distress - Cardiovascular Exam Cardiovascular Exam: REGULAR RHYTHM - GI/Abdominal Exam GI & Abdominal Exam: Normal Bowel Sounds - Extremities Exam Extremities exam: Negative for: calf tenderness (right leg is mildly larger than the left with no gross edema present), normal capillary refill, pedal edema , tenderness - Skin Skin Exam: Intact, Normal Color Results - Vital Signs Recent Vital Signs: Last Vital Signs Temp 98.4 F 08/07/16 12:20 Pulse 56 L 08/07/16 12:20 Resp 20 08/07/16 12:20 BP 134/65 08/07/16 12:20 Pulse Ox 95 08/07/16 12:20 - Labs Result Diagrams: 08/07/16 05:00 08/07/16 05:00 Labs: Laboratory Results - last 24 hr 08/06/16 08/06/16 08/07/16 16:18 21:49 05:00 WBC 12.3 H RBC 4.04 L Hgb 12.2 Hct 36.7 MCV 90.9 MCH 30.3 MCHC 33.3 RDW 13.6 Plt Count 229 MPV 7.8 Neut % (Auto) 71.1 Lymph % (Auto) 20.9 [place] % (Auto) 7.4 Eos % (Auto) 0.5 Baso % (Auto) 0.1 Neut # 8.8 H Lymph # 2.6 [place] # 0.9 H Eos # 0.1 Baso # 0.0 Sodium Potassium Chloride Carbon Dioxide Anion Gap BUN Creatinine Est GFR ( Amer) Est GFR (Non-Af Amer) POC Glucose (mg/dL) 154 H 145 H Random Glucose Calcium 08/07/16 08/07/16 08/07/16 05:00 05:29 11:03 WBC RBC Hgb Hct MCV MCH MCHC RDW Plt Count MPV Neut % (Auto) Lymph % (Auto) [place] % (Auto) Eos % (Auto) Baso % (Auto) Neut # Lymph # [place] # Eos # Baso # Sodium 139 Potassium 4.0 Chloride 105 Carbon Dioxide 26 Anion Gap 12 BUN 14 Creatinine 0.9 Est GFR ( Amer) > 60 Est GFR (Non-Af Amer) > 60 POC Glucose (mg/dL) 123 H 138 H Random Glucose 111 H Calcium 8.9 Assessment & Plan - Assessment and Plan (Free Text) Assessment: Right lower extremity ultrasound shows popliteal and femoral DVT. I discussed this situation with patient's spine surgeon and he feels systemic anticoagulation bears significant risk of bleeding in this situation and has to be avoided for the payam being. Of note, patient has no significant right leg swelling or tenderness. There is no evidence of significant compromise of right leg venous return. Due to risk of pulmonary embolism in this essentially non- ambulatory patient with DVT, placement of IVC filter is warranted. Plan: Proceed with IVC filter placement today - Date & Time Date: 08/07/16 Time: 14:32
--- NOTE | 2016-08-07 14:14 | CP.PCM.PCO ---
Assessment & Plan - Assessment and Plan (Free Text) Assessment: Spoke to PA with Dr Hilario, surgeon ok with giving 1 dose of 40mg lovenox today prior to scheduled ivc filter tomorrow. Patient may resume eliquis in 1 week. Discussed with PMD and dose ordered. Patient NPO for IVC with dr patel tomorrow.
--- NOTE | 2016-08-07 15:06 | CP.PCM.PN ---
Subjective - Date & Time of Evaluation Date of Evaluation: 08/07/16 Time of Evaluation: 08:00 - Subjective Subjective: pt c/o minimal incisional pain,pre op RLE pain improvement,residual weakness BLE with paresthesias,cristina PO,voiding,+ flatus,BLE venous duplex ordered per attd secondary to immobility and pt being off Eliquis x 1 week,pt to start prophylactic Lovenox today,denies calf pain,CP,SOB Objective - Vital Signs/Intake and Output Vital Signs (last 24 hours): Temp Pulse Resp BP Pulse Ox 98.4 F 56 L 20 134/65 95 08/07/16 12:20 08/07/16 12:20 08/07/16 12:20 08/07/16 12:20 08/07/16 12:20 Intake and Output: 08/07/16 08/07/16 06:59 18:59 Intake Total 1030 340 Output Total 1065 500 Balance -35 -160 - Medications Medications: Current Medications Amlodipine Besylate (Norvasc) 10 mg PO DAILY [facility] Last Admin: 08/07/16 08:36 Dose: 10 mg Dextrose (Dextrose 50% Inj) 0 ml IV STAT PRN; Protocol PRN Reason: Hyglycemia Protocol Dextrose (Glutose 15) 0 gm PO ONCE PRN; Protocol PRN Reason: Hypoglycemia Protocol Gabapentin (Neurontin) 300 mg PO TID [facility] Last Admin: 08/07/16 12:04 Dose: 300 mg Glucagon (Glucagen Diagnostic Kit) 0 mg IM STAT PRN; Protocol PRN Reason: Hypoglycemia Protocol Cefazolin Sodium 1 gm/ Sodium (Chloride) 100 mls @ 100 mls/hr IVPB Q8 [facility] Last Admin: 08/07/16 08:40 Dose: 100 mls/hr Insulin Human Lispro (Humalog) 0 units SC ACTID [facility] PRN Reason: Protocol Last Admin: 08/07/16 12:04 Dose: Not Given Lidocaine (Lidoderm) 1 ea TD DAILY PRN PRN Reason: BACK PAIN Metformin HCl (Glucophage) 500 mg PO BID [facility] Last Admin: 08/05/16 17:31 Dose: Not Given Metoprolol Tartrate (Lopressor) 50 mg PO BID [facility] Last Admin: 08/07/16 08:37 Dose: 50 mg Oxycodone/Acetaminophen (Percocet 5/325 Mg Tab) 1 tab PO Q6 PRN PRN Reason: Pain, severe (8-10) Stop: 08/09/16 14:57 Sitagliptin Phosphate (Januvia) 100 mg PO DAILY [facility] Tramadol HCl (Ultram) 50 mg PO Q6 PRN PRN Reason: Pain, moderate (4-7) Valsartan (Diovan) 320 mg PO DAILY [facility] Last Admin: 08/07/16 08:37 Dose: 320 mg - Labs Labs: 08/07/16 05:00 08/07/16 05:00 PT 10.6 Seconds (9.8-13.1) 08/05/16 11:09 INR 0.9 (0.9-1.2) 08/05/16 11:09 APTT 33.3 Seconds (25.6-37.1) 08/05/16 11:09 - Constitutional Appears: Well, Non-toxic, No Acute Distress - Head Exam Head Exam: ATRAUMATIC, NORMAL INSPECTION, NORMOCEPHALIC - Eye Exam Eye Exam: EOMI, Normal appearance, PERRL - ENT Exam ENT Exam: Mucous Membranes Moist - Neck Exam Neck Exam: Normal Inspection - Respiratory Exam Respiratory Exam: Clear to Ausculation Bilateral - Cardiovascular Exam Cardiovascular Exam: REGULAR RHYTHM, +S1, +S2 - GI/Abdominal Exam GI & Abdominal Exam: Soft - Extremities Exam Extremities Exam: Normal Inspection Additional comments: neg pramod's,no edema,+2 pulses - Back Exam Additional comments: wound intact,dressing stained with serosanguinos fluid,MAU patent,65cc/12 hours overnight,+ incisional tenderness - Neurological Exam Neurological Exam: Alert, Oriented x3 Additional comments: HARTMAN x 4 antigravity 5/5 motor strength BUE,Quad/hamstring/EHL 4/5,dorsi/plantar 3+ to 4/5,decreased sensation RLE - Psychiatric Exam Psychiatric exam: Normal Affect, Normal Mood - Skin Skin Exam: Dry, Intact Assessment and Plan - Assessment and Plan (Free Text) Assessment: 71 yo male POD#1 Decompressive Lumbar Laminectomy L2-L3 with Posterior Lateral non instrumented fusion/Residual BLE weakness and radiculapathy/RLE DVT/Hx afib currently in NSR off Eliquis x 1 week for surgery/Htn/DM/Hemodynamically stable Plan: results of initial duplex showing large RLE thrombus d/w resident and Dr. Hilario, vascular (Misty)and cardiology(Elian) consults called,pt to have an IVC filter placed today,per Dr. Hilario risks of full anticoagulation too high for spinal hematoma since pt had decompressive lami yesterday,will give Lovenox 40mg SC Abby arthur to start in 1 week,PT held,will cont to follow,all d/w Dr. Hilario and pt's family.
[2016-08-07] MEDS ORDERED: Bupivacaine 0.5% Inj(30mL) ONE (16:02)
[2016-08-07] MEDS ORDERED: Lidocaine 1% Inj (20ml) ONE (16:02)
[2016-08-07] MEDS ORDERED: Iohexol 300 100 ML IJ ONE (16:03)
[2016-08-07] MEDS ORDERED: Lidocaine 1% Inj (20ml) IJ ONE (16:55)
[2016-08-07] MEDS ORDERED: Iohexol 300 10 ML IJ ONE (17:00)
--- NOTE | 2016-08-07 18:11 | PCM.SURG1 ---
Surgeon's Initial Post Op Note - Surgeon's Notes Surgeon: Dr. Wick Reading Interventionist: none Type of Anesthesia: Local Pre-Operative Diagnosis: Popliteal vein thrombosis Operative Findings: same Post-Operative Diagnosis: same Operation Performed: Insertion of IVC filter Specimen/Specimens Removed: ivc filter Estimated Blood Loss: EBL {In ML}: 10 Blood Products Given: N/A Drains Used: No Drains Post-Op Condition: Good Date of Surgery/Procedure: 08/07/16 Time of Surgery/Procedure: 18:11
[2016-08-07] MEDS ORDERED: Enoxaparin 80 mg Syringe SC SCH (21:00)
[2016-08-08] MEDS: ceFAZolin 1 GM in Sodium Chloride 0.9% 100 ML IVPB SCH ×3 (00:47→16:40)
[2016-08-08] MEDS: Insulin Lispro (humaLOG) 100 Units/ml Inj SC SCH ×3 (06:54→16:26)
[2016-08-08 07:10] LABS: HEMATOCRIT 37.6 % (35.0-51.0); MEAN CELL VOLUME 90.5 fl (80.0-94.0); MEAN CORPUSCULAR HEMOGLOBIN 30.9 pg (27.0-31.0); MEAN CORPUSCULAR HGB CONC 34.2 g/dL (33.0-37.0); RED CELL DISTRIBUTION WIDTH 13.7 % (11.5-14.5); WHITE BLOOD COUNT 11.2 K/uL (4.8-10.8)
[2016-08-08 07:31] LABS: BLOOD UREA NITROGEN 11 mg/dl (9-20); CALCIUM 8.9 mg/dL (8.4-10.2); CARBON DIOXIDE 26 mmol/L (22-30); CHLORIDE 105 mmol/L (98-107); GFR AFRICAN-AMERICAN > 60; GLUCOSE,RANDOM 106 mg/dL (75-110); SODIUM 139 mmol/l (132-148)
--- NOTE | 2016-08-08 07:33 | CP.PCM.PN ---
<Ирина Cerrato - Last Filed: 08/08/16 07:30> Subjective - Date & Time of Evaluation Date of Evaluation: 08/08/16 Time of Evaluation: 07:30 - Subjective Subjective: Vascular Surgery - Dr. Jay Pt S&EKera PIKE. Pt doing well post-operatively. He denies any discomfort at the groin site from IVCFilter yesterday. He is tolerating diet. No F/C, SOB/ Cp. Objective - Vital Signs/Intake and Output Vital Signs (last 24 hours): Temp Pulse Resp BP Pulse Ox 98.7 F 58 L 20 124/71 95 08/08/16 05:00 08/08/16 05:00 08/08/16 05:00 08/08/16 05:00 08/08/16 05:00 Intake and Output: 08/08/16 08/08/16 06:59 18:59 Intake Total 990 Balance 990 - Medications Medications: Current Medications Amlodipine Besylate (Norvasc) 10 mg PO DAILY [facility] Last Admin: 08/07/16 08:36 Dose: 10 mg Dextrose (Dextrose 50% Inj) 0 ml IV STAT PRN; Protocol PRN Reason: Hyglycemia Protocol Dextrose (Glutose 15) 0 gm PO ONCE PRN; Protocol PRN Reason: Hypoglycemia Protocol Gabapentin (Neurontin) 300 mg PO TID [facility] Last Admin: 08/07/16 17:55 Dose: 300 mg Glucagon (Glucagen Diagnostic Kit) 0 mg IM STAT PRN; Protocol PRN Reason: Hypoglycemia Protocol Cefazolin Sodium 1 gm/ Sodium (Chloride) 100 mls @ 100 mls/hr IVPB Q8 [facility] Last Admin: 08/08/16 00:47 Dose: 100 mls/hr Insulin Human Lispro (Humalog) 0 units SC ACTID [facility] PRN Reason: Protocol Last Admin: 08/08/16 06:54 Dose: Not Given Lidocaine (Lidoderm) 1 ea TD DAILY PRN PRN Reason: BACK PAIN Metformin HCl (Glucophage) 500 mg PO BID [facility] Last Admin: 08/05/16 17:31 Dose: Not Given Metoprolol Tartrate (Lopressor) 50 mg PO BID [facility] Last Admin: 08/07/16 18:03 Dose: Not Given Oxycodone/Acetaminophen (Percocet 5/325 Mg Tab) 1 tab PO Q6 PRN PRN Reason: Pain, severe (8-10) Stop: 08/09/16 14:57 Sitagliptin Phosphate (Januvia) 100 mg PO DAILY [facility] Tramadol HCl (Ultram) 50 mg PO Q6 PRN PRN Reason: Pain, moderate (4-7) Last Admin: 08/07/16 18:05 Dose: 50 mg Valsartan (Diovan) 320 mg PO DAILY [facility] Last Admin: 08/07/16 08:37 Dose: 320 mg - Labs Labs: 08/07/16 05:00 08/07/16 05:00 PT 10.6 Seconds (9.8-13.1) 08/05/16 11:09 INR 0.9 (0.9-1.2) 08/05/16 11:09 APTT 33.3 Seconds (25.6-37.1) 08/05/16 11:09 - Constitutional Appears: No Acute Distress - Head Exam Head Exam: ATRAUMATIC, NORMAL INSPECTION, NORMOCEPHALIC - Eye Exam Eye Exam: Normal appearance - Respiratory Exam Respiratory Exam: NORMAL BREATHING PATTERN. absent: Respiratory Distress - GI/Abdominal Exam GI & Abdominal Exam: Soft. absent: Tenderness - Extremities Exam Extremities Exam: absent: Tenderness Additional comments: Right groin site with dressing in place, C/D/I, no hematoma - Neurological Exam Neurological Exam: Alert, Oriented x3 - Psychiatric Exam Psychiatric exam: Normal Affect, Normal Mood - Skin Skin Exam: Dry, Intact Assessment and Plan - Assessment and Plan (Free Text) Assessment: 71 yo M w/ popliteal vein thrombus, S/P IVCF -Groin site C/D/I with no hematoma -Continue care as per medical team -Anticoagulation to be determined by Dr. Hilario and medical team -No further surgical intervention -Surgery will sign off, thank you for allowing us to participate in the care of this patient -Pt may followup in office with Dr Jay to follow the DVT DW Dr. Misty Cerrato PGY2 <Arpit Jay - Last Filed: 08/08/16 14:09> Subjective - Subjective Subjective: Patient seen and examined. No immediate issues. Groin venous access site shows no evidence of complications. Right leg clinically is unchanged with no worsening swelling or tenderness. Continue current care. I will follow patient after discharge as an outpatient to monitor his DVT and manage IVC filter. Objective - Vital Signs/Intake and Output Vital Signs (last 24 hours): Temp Pulse Resp BP Pulse Ox 98.2 F 59 L 18 143/67 94 L 08/08/16 12:25 08/08/16 12:25 08/08/16 12:25 08/08/16 12:25 08/08/16 12:25 Intake and Output: 08/08/16 08/08/16 06:59 18:59 Intake Total 990 Balance 990 - Medications Medications: Current Medications Amlodipine Besylate (Norvasc) 10 mg PO DAILY [facility] Last Admin: 08/08/16 08:48 Dose: 10 mg Dextrose (Dextrose 50% Inj) 0 ml IV STAT PRN; Protocol PRN Reason: Hyglycemia Protocol Dextrose (Glutose 15) 0 gm PO ONCE PRN; Protocol PRN Reason: Hypoglycemia Protocol Gabapentin (Neurontin) 300 mg PO TID [facility] Last Admin: 08/08/16 12:50 Dose: 300 mg Glucagon (Glucagen Diagnostic Kit) 0 mg IM STAT PRN; Protocol PRN Reason: Hypoglycemia Protocol Cefazolin Sodium 1 gm/ Sodium (Chloride) 100 mls @ 100 mls/hr IVPB Q8 [facility] Last Admin: 08/08/16 08:52 Dose: 100 mls/hr Insulin Human Lispro (Humalog) 0 units SC ACTID [facility] PRN Reason: Protocol Last Admin: 08/08/16 12:51 Dose: 1 unit Lidocaine (Lidoderm) 1 ea TD DAILY PRN PRN Reason: BACK PAIN Metformin HCl (Glucophage) 500 mg PO BID [facility] Last Admin: 08/05/16 17:31 Dose: Not Given Metoprolol Tartrate (Lopressor) 50 mg PO BID [facility] Last Admin: 08/08/16 08:47 Dose: Not Given Oxycodone/Acetaminophen (Percocet 5/325 Mg Tab) 1 tab PO Q6 PRN PRN Reason: Pain, severe (8-10) Stop: 08/09/16 14:57 Sitagliptin Phosphate (Januvia) 100 mg PO DAILY [facility] Tramadol HCl (Ultram) 50 mg PO Q6 PRN PRN Reason: Pain, moderate (4-7) Last Admin: 08/07/16 18:05 Dose: 50 mg Valsartan (Diovan) 320 mg PO DAILY [facility] Last Admin: 08/08/16 08:47 Dose: 320 mg - Labs Labs: 08/08/16 05:05 08/08/16 05:05 PT 10.6 Seconds (9.8-13.1) 08/05/16 11:09 INR 0.9 (0.9-1.2) 08/05/16 11:09 APTT 33.3 Seconds (25.6-37.1) 08/05/16 11:09
[2016-08-08] MEDS ORDERED: Enoxaparin 40 mg Syringe SC ONE (09:00)
--- NOTE | 2016-08-08 10:30 | CP.PCM.CON ---
History of Present Illness - History of Present Illness History of Present Illness: This is a 71 yrs old male who has had back problems for a long time He has had spondylitis for a long time and was unable to walk because of radicular pain from the back down the leg. He also has A Fib and was on anticoagulants for the same. He underwent a laminectomy of the L1 L2 vertebrae and the anticoagulant was held. He developed swelling in both lower extremities.A venous doppler showed a DVT in the left leg but the right one was normal. Since he could not be started on anticoagulants so soon after the surgery a IVC filter was placed. In a few days he will go back to the [facility]. Past Patient History - Infectious Disease Hx of Infectious Diseases: None - Tetanus Immunizations Tetanus Immunization: Unknown - Past Medical History & Family History Past Medical History?: Yes - Past Social History Smoking Status: Former Smoker Chewing Tobacco Use: No Cigar Use: No Occupation: Dis[employer] Alcohol: Occasional Drugs: Denies Home Situation {Lives}: With Family Domestic Violence: Negative - CARDIAC Hx Cardiac Disorders: Yes - ENDOCRINE/METABOLIC Hx Diabetes Mellitus Type 2: Yes - MUSCULOSKELETAL/RHEUMATOLOGICAL Hx Falls: Yes - PSYCHIATRIC Hx Substance Use: No - SURGICAL HISTORY Other/Comment: varicose vein surgery as per patient. nose SX - ANESTHESIA Hx Anesthesia: Yes Hx Anesthesia Reactions: No Meds Allergies/Adverse Reactions: Allergies Allergy/AdvReac Type Severity Reaction Status Date / Time No Known Allergies Allergy Verified 08/05/16 10:37 - Medications Medications: Current Medications Amlodipine Besylate (Norvasc) 10 mg PO DAILY [facility] Last Admin: 08/08/16 08:48 Dose: 10 mg Dextrose (Dextrose 50% Inj) 0 ml IV STAT PRN; Protocol PRN Reason: Hyglycemia Protocol Dextrose (Glutose 15) 0 gm PO ONCE PRN; Protocol PRN Reason: Hypoglycemia Protocol Gabapentin (Neurontin) 300 mg PO TID [facility] Last Admin: 08/08/16 08:48 Dose: 300 mg Glucagon (Glucagen Diagnostic Kit) 0 mg IM STAT PRN; Protocol PRN Reason: Hypoglycemia Protocol Cefazolin Sodium 1 gm/ Sodium (Chloride) 100 mls @ 100 mls/hr IVPB Q8 [facility] Last Admin: 08/08/16 08:52 Dose: 100 mls/hr Insulin Human Lispro (Humalog) 0 units SC ACTID [facility] PRN Reason: Protocol Last Admin: 08/08/16 06:54 Dose: Not Given Lidocaine (Lidoderm) 1 ea TD DAILY PRN PRN Reason: BACK PAIN Metformin HCl (Glucophage) 500 mg PO BID [facility] Last Admin: 08/05/16 17:31 Dose: Not Given Metoprolol Tartrate (Lopressor) 50 mg PO BID [facility] Last Admin: 08/08/16 08:47 Dose: Not Given Oxycodone/Acetaminophen (Percocet 5/325 Mg Tab) 1 tab PO Q6 PRN PRN Reason: Pain, severe (8-10) Stop: 08/09/16 14:57 Sitagliptin Phosphate (Januvia) 100 mg PO DAILY [facility] Tramadol HCl (Ultram) 50 mg PO Q6 PRN PRN Reason: Pain, moderate (4-7) Last Admin: 08/07/16 18:05 Dose: 50 mg Valsartan (Diovan) 320 mg PO DAILY [facility] Last Admin: 08/08/16 08:47 Dose: 320 mg Physical Exam - Additional Findings Additional findings: Physical exam; Alert, well oriented in no acute distress neck; Supple, no adenopathy Chest; Clear, nmo rales or rhonchi Heart; RSR, n murmur,no murmur Abd; Soft, no mass, no h/s megaly Slight edema both lower extremities. Results - Vital Signs Recent Vital Signs: Last Vital Signs Temp 98.1 F 08/08/16 08:13 Pulse 56 L 08/08/16 08:48 Resp 18 08/08/16 08:13 BP 131/74 08/08/16 08:48 Pulse Ox 94 L 08/08/16 08:13 - Labs Result Diagrams: 08/08/16 05:05 08/08/16 05:05 Labs: Laboratory Results - last 24 hr 08/07/16 08/07/16 08/07/16 11:03 16:14 21:19 WBC RBC Hgb Hct MCV MCH MCHC RDW Plt Count Sodium Potassium Chloride Carbon Dioxide Anion Gap BUN Creatinine Est GFR ( Amer) Est GFR (Non-Af Amer) POC Glucose (mg/dL) 138 H 107 129 H Random Glucose Calcium 08/08/16 08/08/16 08/08/16 05:05 05:05 05:33 WBC 11.2 H RBC 4.16 L Hgb 12.9 Hct 37.6 MCV 90.5 MCH 30.9 MCHC 34.2 RDW 13.7 Plt Count 216 Sodium 139 Potassium 4.0 Chloride 105 Carbon Dioxide 26 Anion Gap 11 BUN 11 Creatinine 0.9 Est GFR ( Amer) > 60 Est GFR (Non-Af Amer) > 60 POC Glucose (mg/dL) 98 Random Glucose 106 Calcium 8.9 Assessment & Plan - Assessment and Plan (Free Text) Assessment: Impression; DVT after a L1and L2 laminectomy.Also h/o A Fib. Plan: Plan; Pt has a filter at this time, which should help until he can be started back on the on the Eliquis..I would discuss with the neurosurgeon how long he would like the pt to be off the anticoagulants. - Date & Time Date: 08/08/16 Time: 10:50
--- NOTE | 2016-08-08 12:58 | CARD ---
APPROVED REPORT EXAM: Two-dimensional and M-mode echocardiogram with Doppler and color Doppler. Other Information Quality : AverageRhythm : NSR INDICATION Atrial Fibrillation 2D DIMENSIONS IVSd1.53 (0.7-1.1cm)LVDd5.75 (3.9-5.9cm) LVOT Diameter2.34 (1.8-2.4cm)PWd0.83 (0.7-1.1cm) IVSs1.35 (0.8-1.2cm)LVDs5.55 (2.5-4.0cm) FS (%) 3.5 %PWs1.34 (0.8-1.2cm) M-Mode DIMENSIONS Left Atrium (MM)4.44 (2.5-4.0cm)IVSd1.05 (0.7-1.1cm) Aortic Root3.60 (2.2-3.7cm)LVDd5.80 (4.0-5.6cm) Aortic Cusp Exc.2.10 (1.5-2.0cm)PWd1.12 (0.7-1.1cm) IVSs1.75 cmFS (%) 54 % LVDs2.65 (2.0-3.8cm)PWs1.50 cm Mitral Valve MV E Eapqzebg80.8cm/sMV DECEL [id number] A Bpjrigcm86.0cm/s MV [id number]/A ratio1.8MVA (PHT)3.21cm2 TDI E/Lateral E'0.0E/Medial E'0.0 LEFT VENTRICLE The left ventricle is normal size. There is normal left ventricular wall thickness. The left ventricular function is normal. The left ventricular ejection fraction is 55% There is normal LV segmental wall motion. The left ventricular diastolic function is normal. No left ventricle thrombus noted on this study. There is no ventricular septal defect visualized. There is no left ventricular aneurysm. There is no mass noted in the left ventricle. RIGHT VENTRICLE The right ventricle is normal size. There is normal right ventricular wall thickness. The right ventricular systolic function is normal. ATRIA The left atrium is mildly dilated. The right atrium size is normal. The interatrial septum is intact with no evidence for an atrial septal defect. AORTIC VALVE The aortic valve is normal in structure and function. No aortic regurgitation is present. There is no aortic valvular stenosis. There is no aortic valvular vegetation. MITRAL VALVE The mitral valve is normal in structure and function. There is no evidence of mitral valve prolapse. There is no mitral valve stenosis. There is no mitral valve regurgitation noted. TRICUSPID VALVE The tricuspid valve is normal in structure and function. There is no tricuspid valve regurgitation noted. There is no tricuspid valve prolapse or vegetation. There is no tricuspid valve stenosis. PULMONIC VALVE The pulmonary valve is normal in structure and function. There is no pulmonic valvular regurgitation. There is no pulmonic valvular stenosis. GREAT VESSELS The aortic root is normal in size. The ascending aorta is normal in size. The IVC is normal in size and collapses >50% with inspiration. PERICARDIAL EFFUSION The pericardium appears normal. There is no pleural effusion. <Conclusion> Normal LV Function Mild Left Atrial Enlargement
--- NOTE | 2016-08-08 14:44 | RAD ---
PROCEDURE: Intraoperative Fluoroscopy. HISTORY: Fluoroscopy FINDINGS: Fluoroscopic assistance was provided for IVC filter placement. Please
--- NOTE | 2016-08-08 18:05 | CP.PCM.CON ---
History of Present Illness - History of Present Illness History of Present Illness: I was asked to see patient by Dr. Graf. Patient is a 71 year old male with PMH HTN, paroxysmal atrial fibrillation, who is s/p lumbar spinal surgery. The patient was previously on Eliquis for anticoagulation for atrial fibrillation. This was held to undergo surgery. The patient underwent successful surgery and postoepratively developed a DVT. IVC filter was placed by vascular surgery. The patient remains off anticoagulation due to recent surgery. Review of Systems - Constitutional Constitutional: absent: As Per HPI, Anorexia, Chills, Daytime Sleepiness, Excessive Sweating, Fatigue, Fever, Frequent Falls, Headache, Increased Appetite , Lethargy, Malaise, Night Sweats, Snoring, Sleep Apnea, Weight Gain, Weight Loss, Weakness, Other - EENT Eyes: absent: As Per HPI, Blind Spots, Blurred Vision, Change in Vision, Decreased Night Vision, Diplopia, Discharge, Dry Eye, Exophthalmos, Floaters, Irritation, Itchy Eyes, Loss of Peripheral Vision, Pain, Photophobia, Requires Corrective Lenses, Sees Flashes, Spots in Vision, Tunnel Vision, Other Visual Disturbances, Loss of Vision, Other Ears: absent: As Per HPI, Decreased Hearing, Ear Discharge, Ear Pain, Tinnitus, Abnormal Hearing, Disequilibrium, Dizziness, Other Nose/Mouth/Throat: absent: As Per HPI, Epistaxis, Nasal Congestion, Nasal Discharge, Nasal Obstruction, Nasal Trauma, Nose Pain, Post Nasal Drip, Sinus Pain, Sinus Pressure, Bleeding Gums, Change in Voice, Dental Pain, Dry Mouth, Dysphagia, Halitosis, Hoarsness, Lip Swelling, Mouth Lesions, Mouth Pain, Odynophagia, Sore Throat, Throat Swelling, Tongue Swelling, Facial Pain, Neck Pain, Neck Mass, Other - Cardiovascular Cardiovascular: absent: As Per HPI, Acrocyanosis, Chest Pain, Chest Pain at Rest , Chest Pain with Activity, Claudication, Diaphoresis, Dyspnea, Dyspnea on Exertion, Edema, Irregular Heart Rhythm, Pain Radiating to Arm/Neck/Jaw, Leg Edema, Leg Ulcers, Lightheadedness, Orthopnea, Palpitations, Paroxysmal Nocturnal Dyspnea, Pedal Edema, Radiating Pain, Rapid Heart Rate, Slow Heart Rate, Syncope, Other - Respiratory Respiratory: absent: As Per HPI, Cough, Dyspnea, Hemoptysis, Dyspnea on Exertion , Wheezing, Snoring, Stridor, Pain on Inspiration, Chest Congestion, Excessive Mucous Production, Change in Mucous Color, Pain with Coughing, Other - Gastrointestinal Gastrointestinal: absent: As Per HPI, Abdominal Pain, Belching, Bloating, Change in Bowel Habits, Change in Stool Character, Coffee Ground Emesis, Constipation, Cramping, Diarrhea, Dyspepsia, Dysphagia, Early Satiety, Excessive Flatus, Fecal Incontinence, Heartburn, Hematemesis, Hematochezia, Loose Stools, Melena, Nausea, Odynophagia, Temesmus, Vomiting, Other - Genitourinary Genitourinary: absent: As Per HPI, Change in Urinary Stream, Difficulty Urinating, Dysuria, Flank Pain, Hematuria, Pyuria, Nocturia, Urinary Incontinence, Urinary Frequency, Urinary Hesitance, Urinary Urgency, Voiding Freq/Small Amts, Freq UTI, Hx Renal/Bladder Calculi, Hx /Renal Surgery, Bladder Distension, Other - Musculoskeletal Additional comments: back pain - Integumentary Integumentary: absent: As Per HPI, Acne, Alopecia, Bleeding Lesions, Change in Hair, Change in Nails, Change in Pigmentation, Changing Lesions, Dry Skin, Erythema, Furuncle, Hirsutism, Lesions, New Lesions, Non-Healing Lesions, Photosensitivity, Pruritus, Rash, Skin Pain, Skin Ulcer, Sores, Striae, Swelling , Unusual Bruising, Wounds, Jaundice, Other - Neurological Neurological: absent: As Per HPI, Abnormal Gait, Abnormal Hearing, Abnormal Movements, Abnormal Speech, Behavioral Changes, Burning Sensations, Confusion, Convulsions, Disequilibrium, Dizziness, Numbness, Focal Weakness, Frequent Falls , Headaches, Lack of Coordination, Loss of Vision, Memory Loss, Paresthesias, Radicular Pain, Restless Legs, Sensory Deficit, Syncope, Tingling, Tremor, Vertigo, Weakness, Other Visual Disturbances, Other - Psychiatric Psychiatric: absent: As Per HPI, Abnormal Sleep Pattern, Anhedonia, Anxiety, Auditory Hallucinations, Behavioral Changes, Change in Appetite, Change in Libido, Confusion, Depression, Difficulty Concentrating, Hallucinations, Homicidal Ideation, Hopelessness, Irritability, Memory Loss, Mood Swings, Panic Attacks, Paranoia, Suicidal Ideation, Visual Hallucinations, Tactile Hallucinations, Other - Endocrine Endocrine: absent: As Per HPI, Change in Body Appearance, Change in Libido, Cold Intolorance, Deepening of Voice, Excessive Sweating, Fatigue, Flushing, Heat Intolorance, Increase in Ring/Shoe/Hat Size, Palpitations, Polydipsia, Polyphagia, Polyuria, Other - Hematologic/Lymphatic Hematologic: absent: As Per HPI, Easy Bleeding, Easy Bruising, Lymphadenopathy, Other Past Patient History - Infectious Disease Hx of Infectious Diseases: None - Tetanus Immunizations Tetanus Immunization: Unknown - Past Medical History & Family History Past Medical History?: Yes - Past Social History Smoking Status: Former Smoker Chewing Tobacco Use: No Cigar Use: No Occupation: Disabled Home[employer] Alcohol: Occasional Drugs: Denies Home Situation {Lives}: With Family Domestic Violence: Negative - CARDIAC Hx Cardiac Disorders: Yes - ENDOCRINE/METABOLIC Hx Diabetes Mellitus Type 2: Yes - MUSCULOSKELETAL/RHEUMATOLOGICAL Hx Falls: Yes - PSYCHIATRIC Hx Substance Use: No - SURGICAL HISTORY Other/Comment: varicose vein surgery as per patient. nose SX - ANESTHESIA Hx Anesthesia: Yes Hx Anesthesia Reactions: No Meds Allergies/Adverse Reactions: Allergies Allergy/AdvReac Type Severity Reaction Status Date / Time No Known Allergies Allergy Verified 08/05/16 10:37 - Medications Medications: Current Medications Amlodipine Besylate (Norvasc) 10 mg PO DAILY [facility] Last Admin: 08/08/16 08:48 Dose: 10 mg Dextrose (Dextrose 50% Inj) 0 ml IV STAT PRN; Protocol PRN Reason: Hyglycemia Protocol Dextrose (Glutose 15) 0 gm PO ONCE PRN; Protocol PRN Reason: Hypoglycemia Protocol Gabapentin (Neurontin) 300 mg PO TID [facility] Last Admin: 08/08/16 16:40 Dose: 300 mg Glucagon (Glucagen Diagnostic Kit) 0 mg IM STAT PRN; Protocol PRN Reason: Hypoglycemia Protocol Cefazolin Sodium 1 gm/ Sodium (Chloride) 100 mls @ 100 mls/hr IVPB Q8 [facility] Last Admin: 08/08/16 16:40 Dose: 100 mls/hr Insulin Human Lispro (Humalog) 0 units SC ACTID [facility] PRN Reason: Protocol Last Admin: 08/08/16 16:26 Dose: Not Given Lidocaine (Lidoderm) 1 ea TD DAILY PRN PRN Reason: BACK PAIN Metformin HCl (Glucophage) 500 mg PO BID [facility] Last Admin: 08/05/16 17:31 Dose: Not Given Metoprolol Tartrate (Lopressor) 50 mg PO BID [facility] Last Admin: 08/08/16 16:41 Dose: 50 mg Oxycodone/Acetaminophen (Percocet 5/325 Mg Tab) 1 tab PO Q6 PRN PRN Reason: Pain, severe (8-10) Stop: 08/09/16 14:57 Sitagliptin Phosphate (Januvia) 100 mg PO DAILY [facility] Tramadol HCl (Ultram) 50 mg PO Q6 PRN PRN Reason: Pain, moderate (4-7) Last Admin: 08/07/16 18:05 Dose: 50 mg Valsartan (Diovan) 320 mg PO DAILY [facility] Last Admin: 08/08/16 08:47 Dose: 320 mg Physical Exam - Constitutional Appears: Non-toxic - Head Exam Head Exam: NORMAL INSPECTION - Eye Exam Eye Exam: Normal appearance - ENT Exam ENT Exam: Mucous Membranes Moist - Neck Exam Neck exam: Positive for: Full Rom - Respiratory Exam Respiratory Exam: NORMAL BREATHING PATTERN - Cardiovascular Exam Cardiovascular Exam: REGULAR RHYTHM - GI/Abdominal Exam GI & Abdominal Exam: Normal Bowel Sounds - Rectal Exam Rectal Exam: Deferred - Extremities Exam Extremities exam: Positive for: pedal edema - Back Exam Back exam: NORMAL INSPECTION - Neurological Exam Neurological exam: Alert, Oriented x3 - Psychiatric Exam Psychiatric exam: Normal Affect - Skin Skin Exam: Normal Color Results - Vital Signs Recent Vital Signs: Last Vital Signs Temp 98.8 F 08/08/16 16:26 Pulse 70 08/08/16 16:41 Resp 18 08/08/16 16:26 BP 129/54 L 08/08/16 16:41 Pulse Ox 95 08/08/16 16:26 - Labs Result Diagrams: 08/08/16 05:05 08/08/16 05:05 Labs: Laboratory Results - last 24 hr 08/07/16 08/08/16 08/08/16 21:19 05:05 05:05 WBC 11.2 H RBC 4.16 L Hgb 12.9 Hct 37.6 MCV 90.5 MCH 30.9 MCHC 34.2 RDW 13.7 Plt Count 216 Sodium 139 Potassium 4.0 Chloride 105 Carbon Dioxide 26 Anion Gap 11 BUN 11 Creatinine 0.9 Est GFR ( Amer) > 60 Est GFR (Non-Af Amer) > 60 POC Glucose (mg/dL) 129 H Random Glucose 106 Calcium 8.9 08/08/16 08/08/16 08/08/16 05:33 11:03 16:04 WBC RBC Hgb Hct MCV MCH MCHC RDW Plt Count Sodium Potassium Chloride Carbon Dioxide Anion Gap BUN Creatinine Est GFR ( Amer) Est GFR (Non-Af Amer) POC Glucose (mg/dL) 98 189 H 98 Random Glucose Calcium - EKG Data EKG Interpreted by: Myself EKG shows normal: Sinus rhythm Assessment & Plan (1) Paroxysmal atrial fibrillation Assessment and Plan: currently in sinus rhythm. echocardiogram reveals normal left ventricular function. Recomemnd restarting Eliquis when is stable form a surgical standpoint. Status: Acute (2) DVT (deep venous thrombosis) Assessment and Plan: off Eliquis. IVC filter placed Status: Acute (3) Hypertension Assessment and Plan: blood pressure control Status: Acute
--- NOTE | 2016-08-08 18:05 | CP.PCM.CON ---
History of Present Illness - History of Present Illness History of Present Illness: Patient seen/examined. full consult to follow agree with holding anticaogulation. s/p IVC filter. no cardiac arrhythmia noted Past Patient History - Infectious Disease Hx of Infectious Diseases: None - Tetanus Immunizations Tetanus Immunization: Unknown - Past Medical History & Family History Past Medical History?: Yes - Past Social History Smoking Status: Former Smoker Chewing Tobacco Use: No Cigar Use: No Occupation: Disabled [employer] Alcohol: Occasional Drugs: Denies Home Situation {Lives}: With Family Domestic Violence: Negative - CARDIAC Hx Cardiac Disorders: Yes - ENDOCRINE/METABOLIC Hx Diabetes Mellitus Type 2: Yes - MUSCULOSKELETAL/RHEUMATOLOGICAL Hx Falls: Yes - PSYCHIATRIC Hx Substance Use: No - SURGICAL HISTORY Other/Comment: varicose vein surgery as per patient. nose SX - ANESTHESIA Hx Anesthesia: Yes Hx Anesthesia Reactions: No Meds Allergies/Adverse Reactions: Allergies Allergy/AdvReac Type Severity Reaction Status Date / Time No Known Allergies Allergy Verified 08/05/16 10:37 - Medications Medications: Current Medications Amlodipine Besylate (Norvasc) 10 mg PO DAILY [facility] Last Admin: 08/08/16 08:48 Dose: 10 mg Dextrose (Dextrose 50% Inj) 0 ml IV STAT PRN; Protocol PRN Reason: Hyglycemia Protocol Dextrose (Glutose 15) 0 gm PO ONCE PRN; Protocol PRN Reason: Hypoglycemia Protocol Gabapentin (Neurontin) 300 mg PO TID [facility] Last Admin: 08/08/16 16:40 Dose: 300 mg Glucagon (Glucagen Diagnostic Kit) 0 mg IM STAT PRN; Protocol PRN Reason: Hypoglycemia Protocol Cefazolin Sodium 1 gm/ Sodium (Chloride) 100 mls @ 100 mls/hr IVPB Q8 [facility] Last Admin: 08/08/16 16:40 Dose: 100 mls/hr Insulin Human Lispro (Humalog) 0 units SC ACTID [facility] PRN Reason: Protocol Last Admin: 08/08/16 16:26 Dose: Not Given Lidocaine (Lidoderm) 1 ea TD DAILY PRN PRN Reason: BACK PAIN Metformin HCl (Glucophage) 500 mg PO BID [facility] Last Admin: 08/05/16 17:31 Dose: Not Given Metoprolol Tartrate (Lopressor) 50 mg PO BID [facility] Last Admin: 08/08/16 16:41 Dose: 50 mg Oxycodone/Acetaminophen (Percocet 5/325 Mg Tab) 1 tab PO Q6 PRN PRN Reason: Pain, severe (8-10) Stop: 08/09/16 14:57 Sitagliptin Phosphate (Januvia) 100 mg PO DAILY [facility] Tramadol HCl (Ultram) 50 mg PO Q6 PRN PRN Reason: Pain, moderate (4-7) Last Admin: 08/07/16 18:05 Dose: 50 mg Valsartan (Diovan) 320 mg PO DAILY [facility] Last Admin: 08/08/16 08:47 Dose: 320 mg Results - Vital Signs Recent Vital Signs: Last Vital Signs Temp 98.8 F 08/08/16 16:26 Pulse 70 08/08/16 16:41 Resp 18 08/08/16 16:26 BP 129/54 L 08/08/16 16:41 Pulse Ox 95 08/08/16 16:26 - Labs Result Diagrams: 08/08/16 05:05 08/08/16 05:05 Labs: Laboratory Results - last 24 hr 08/07/16 08/08/16 08/08/16 21:19 05:05 05:05 WBC 11.2 H RBC 4.16 L Hgb 12.9 Hct 37.6 MCV 90.5 MCH 30.9 MCHC 34.2 RDW 13.7 Plt Count 216 Sodium 139 Potassium 4.0 Chloride 105 Carbon Dioxide 26 Anion Gap 11 BUN 11 Creatinine 0.9 Est GFR ( Amer) > 60 Est GFR (Non-Af Amer) > 60 POC Glucose (mg/dL) 129 H Random Glucose 106 Calcium 8.9 08/08/16 08/08/16 08/08/16 05:33 11:03 16:04 WBC RBC Hgb Hct MCV MCH MCHC RDW Plt Count Sodium Potassium Chloride Carbon Dioxide Anion Gap BUN Creatinine Est GFR ( Amer) Est GFR (Non-Af Amer) POC Glucose (mg/dL) 98 189 H 98 Random Glucose Calcium
[2016-08-09] MEDS: ceFAZolin 1 GM in Sodium Chloride 0.9% 100 ML IVPB SCH ×3 (00:20→17:00)
[2016-08-09] MEDS: Insulin Lispro (humaLOG) 100 Units/ml Inj SC SCH ×3 (08:33→16:30)
[2016-08-10] MEDS: ceFAZolin 1 GM in Sodium Chloride 0.9% 100 ML IVPB SCH ×3 (01:28→17:28)
[2016-08-10] MEDS: Insulin Lispro (humaLOG) 100 Units/ml Inj SC SCH ×3 (09:03→17:37)
--- NOTE | 2016-08-10 15:35 | CP.PCM.PN ---
Subjective - Date & Time of Evaluation Date of Evaluation: 08/09/16 Time of Evaluation: 14:00 - Subjective Subjective: patient has no chest pain or dyspnea. Objective - Vital Signs/Intake and Output Vital Signs (last 24 hours): Temp Pulse Resp BP Pulse Ox 98.2 F 55 L 18 118/64 96 08/10/16 12:08 08/10/16 12:08 08/10/16 12:08 08/10/16 12:08 08/10/16 12:08 Intake and Output: 08/10/16 08/10/16 06:59 18:59 Intake Total 950 Output Total 20 Balance 930 - Medications Medications: Current Medications Amlodipine Besylate (Norvasc) 10 mg PO DAILY [facility] Last Admin: 08/10/16 09:00 Dose: 10 mg Dextrose (Dextrose 50% Inj) 0 ml IV STAT PRN; Protocol PRN Reason: Hyglycemia Protocol Dextrose (Glutose 15) 0 gm PO ONCE PRN; Protocol PRN Reason: Hypoglycemia Protocol Gabapentin (Neurontin) 300 mg PO TID [facility] Last Admin: 08/10/16 08:59 Dose: 300 mg Glucagon (Glucagen Diagnostic Kit) 0 mg IM STAT PRN; Protocol PRN Reason: Hypoglycemia Protocol Cefazolin Sodium 1 gm/ Sodium (Chloride) 100 mls @ 100 mls/hr IVPB Q8 [facility] Last Admin: 08/10/16 09:02 Dose: 100 mls/hr Insulin Human Lispro (Humalog) 0 units SC ACTID [facility] PRN Reason: Protocol Last Admin: 08/10/16 09:03 Dose: Not Given Lidocaine (Lidoderm) 1 ea TD DAILY PRN PRN Reason: BACK PAIN Metformin HCl (Glucophage) 500 mg PO BID [facility] Last Admin: 08/05/16 17:31 Dose: Not Given Metoprolol Tartrate (Lopressor) 50 mg PO BID [facility] Last Admin: 08/10/16 08:58 Dose: 50 mg Sitagliptin Phosphate (Januvia) 100 mg PO DAILY [facility] Valsartan (Diovan) 320 mg PO DAILY [facility] Last Admin: 08/10/16 08:57 Dose: 320 mg - Labs Labs: 08/08/16 05:05 08/08/16 05:05 PT 10.6 Seconds (9.8-13.1) 08/05/16 11:09 INR 0.9 (0.9-1.2) 08/05/16 11:09 APTT 33.3 Seconds (25.6-37.1) 08/05/16 11:09 - Constitutional Appears: Non-toxic - Head Exam Head Exam: NORMAL INSPECTION - Eye Exam Eye Exam: Normal appearance - ENT Exam ENT Exam: Mucous Membranes Moist - Neck Exam Neck Exam: Full ROM - Respiratory Exam Respiratory Exam: NORMAL BREATHING PATTERN - Cardiovascular Exam Cardiovascular Exam: REGULAR RHYTHM - GI/Abdominal Exam GI & Abdominal Exam: Normal Bowel Sounds - Rectal Exam Rectal Exam: Deferred - Extremities Exam Extremities Exam: absent: Pedal Edema - Back Exam Back Exam: NORMAL INSPECTION - Neurological Exam Neurological Exam: Alert - Psychiatric Exam Psychiatric exam: Normal Affect - Skin Skin Exam: Normal Color Assessment and Plan (1) Paroxysmal atrial fibrillation Assessment & Plan: in sinus rhythm. will continue to hold anticoagulation. Status: Acute (2) DVT (deep venous thrombosis) Status: Acute (3) Hypertension Assessment & Plan: blood pressure is cotnrolled Status: Acute
[2016-08-11] MEDS: ceFAZolin 1 GM in Sodium Chloride 0.9% 100 ML IVPB SCH ×2 (01:07→08:53)
[2016-08-11] MEDS: Insulin Lispro (humaLOG) 100 Units/ml Inj SC SCH ×2 (08:39→13:04)
--- NOTE | 2016-08-11 11:05 | CP.PCM.PCO ---
Assessment/Plan - Assessment and Plan (Free Text) Plan: MAU drain removed with no complications. Patient for dc today and follow up with neurosurgery with Dr Hilario and guerita clemente on 08.14.2016
[2016-08-11 12:50] VITALS: BP 130/70; PULSE 60; RESP 20; TEMP 99.3; O2SAT 97
--- NOTE | 2016-08-11 12:51 | CP.PCM.PN ---
Subjective - Date & Time of Evaluation Date of Evaluation: 09/06/16 Time of Evaluation: 12:52 - Subjective Subjective: Patient is stable in bed. Had a recent US of lower ext which showed DVT right, He had some pain on the leg even prior to surgery. he was on Eliquis for atrial fibrillation which was discontinued prior to surgery. Objective - Vital Signs/Intake and Output Vital Signs (last 24 hours): Temp Pulse Resp BP Pulse Ox 99.3 F 60 20 130/70 97 08/11/16 12:50 08/11/16 12:50 08/11/16 12:50 08/11/16 12:50 08/11/16 12:50 Intake and Output: 08/11/16 08/11/16 06:59 18:59 Intake Total 850 950 Output Total 10 0 Balance 840 950 - Medications Medications: Current Medications Amlodipine Besylate (Norvasc) 10 mg PO DAILY [facility] Last Admin: 08/11/16 08:41 Dose: 10 mg Dextrose (Dextrose 50% Inj) 0 ml IV STAT PRN; Protocol PRN Reason: Hyglycemia Protocol Dextrose (Glutose 15) 0 gm PO ONCE PRN; Protocol PRN Reason: Hypoglycemia Protocol Famotidine (Pepcid) 40 mg PO DAILY [facility] Last Admin: 08/11/16 08:00 Dose: 40 mg Gabapentin (Neurontin) 300 mg PO TID [facility] Last Admin: 08/11/16 08:40 Dose: 300 mg Glucagon (Glucagen Diagnostic Kit) 0 mg IM STAT PRN; Protocol PRN Reason: Hypoglycemia Protocol Cefazolin Sodium 1 gm/ Sodium (Chloride) 100 mls @ 100 mls/hr IVPB Q8 [facility] Last Admin: 08/11/16 08:53 Dose: 100 mls/hr Insulin Human Lispro (Humalog) 0 units SC ACTID [facility] PRN Reason: Protocol Last Admin: 08/11/16 08:39 Dose: Not Given Lidocaine (Lidoderm) 1 ea TD DAILY PRN PRN Reason: BACK PAIN Metformin HCl (Glucophage) 500 mg PO BID [facility] Last Admin: 08/05/16 17:31 Dose: Not Given Metoprolol Tartrate (Lopressor) 50 mg PO BID [facility] Last Admin: 08/11/16 08:53 Dose: 50 mg Sitagliptin Phosphate (Januvia) 100 mg PO DAILY [facility] Valsartan (Diovan) 320 mg PO DAILY [facility] Last Admin: 08/11/16 08:38 Dose: 320 mg - Labs Labs: 08/08/16 05:05 08/08/16 05:05 PT 10.6 Seconds (9.8-13.1) 08/05/16 11:09 INR 0.9 (0.9-1.2) 08/05/16 11:09 APTT 33.3 Seconds (25.6-37.1) 08/05/16 11:09 - Head Exam Head Exam: NORMAL INSPECTION - Eye Exam Eye Exam: Normal appearance - ENT Exam ENT Exam: Mucous Membranes Moist - Cardiovascular Exam Cardiovascular Exam: REGULAR RHYTHM - GI/Abdominal Exam GI & Abdominal Exam: Normal Bowel Sounds - Extremities Exam Additional comments: slght tenderness only on the right leg - Neurological Exam Neurological Exam: Awake, Oriented x3 - Psychiatric Exam Psychiatric exam: Normal Mood Assessment and Plan (1) Lumbar stenosis Status: Acute (2) Lumbar spondylosis Status: Acute (3) Intractable low back pain Status: Acute (4) Hypertension Status: Acute (5) Diabetes mellitus type 2 in obese Status: Acute (6) DVT (deep venous thrombosis) Status: Acute - Assessment and Plan (Free Text) Plan: cont meds for filter insertion. cont meds tc DR Hilario informed. will get IR for filter.,
--- NOTE | 2016-08-11 12:58 | CP.PCM.PN ---
Subjective - Date & Time of Evaluation Date of Evaluation: 08/08/16 Time of Evaluation: 10:00 - Subjective Subjective: Patient remains stable Has no leg pain No fever. Objective - Vital Signs/Intake and Output Vital Signs (last 24 hours): Temp Pulse Resp BP Pulse Ox 99.3 F 60 20 130/70 97 08/11/16 12:50 08/11/16 12:50 08/11/16 12:50 08/11/16 12:50 08/11/16 12:50 Intake and Output: 08/11/16 08/11/16 06:59 18:59 Intake Total 850 950 Output Total 10 0 Balance 840 950 - Medications Medications: Current Medications Amlodipine Besylate (Norvasc) 10 mg PO DAILY [facility] Last Admin: 08/11/16 08:41 Dose: 10 mg Dextrose (Dextrose 50% Inj) 0 ml IV STAT PRN; Protocol PRN Reason: Hyglycemia Protocol Dextrose (Glutose 15) 0 gm PO ONCE PRN; Protocol PRN Reason: Hypoglycemia Protocol Famotidine (Pepcid) 40 mg PO DAILY [facility] Last Admin: 08/11/16 08:00 Dose: 40 mg Gabapentin (Neurontin) 300 mg PO TID [facility] Last Admin: 08/11/16 08:40 Dose: 300 mg Glucagon (Glucagen Diagnostic Kit) 0 mg IM STAT PRN; Protocol PRN Reason: Hypoglycemia Protocol Cefazolin Sodium 1 gm/ Sodium (Chloride) 100 mls @ 100 mls/hr IVPB Q8 [facility] Last Admin: 08/11/16 08:53 Dose: 100 mls/hr Insulin Human Lispro (Humalog) 0 units SC ACTID [facility] PRN Reason: Protocol Last Admin: 08/11/16 08:39 Dose: Not Given Lidocaine (Lidoderm) 1 ea TD DAILY PRN PRN Reason: BACK PAIN Metformin HCl (Glucophage) 500 mg PO BID [facility] Last Admin: 08/05/16 17:31 Dose: Not Given Metoprolol Tartrate (Lopressor) 50 mg PO BID [facility] Last Admin: 08/11/16 08:53 Dose: 50 mg Sitagliptin Phosphate (Januvia) 100 mg PO DAILY [facility] Valsartan (Diovan) 320 mg PO DAILY [facility] Last Admin: 08/11/16 08:38 Dose: 320 mg - Labs Labs: 08/08/16 05:05 08/08/16 05:05 PT 10.6 Seconds (9.8-13.1) 08/05/16 11:09 INR 0.9 (0.9-1.2) 08/05/16 11:09 APTT 33.3 Seconds (25.6-37.1) 08/05/16 11:09 - Eye Exam Eye Exam: Normal appearance - ENT Exam ENT Exam: Mucous Membranes Moist - Cardiovascular Exam Cardiovascular Exam: REGULAR RHYTHM - GI/Abdominal Exam GI & Abdominal Exam: Normal Bowel Sounds - Neurological Exam Neurological Exam: Awake, Oriented x3 Assessment and Plan (1) Lumbar stenosis Status: Acute (2) Lumbar spondylosis Status: Acute (3) Intractable low back pain Status: Acute (4) Hypertension Status: Acute (5) Diabetes mellitus type 2 in obese Status: Acute (6) DVT (deep venous thrombosis) Status: Acute - Assessment and Plan (Free Text) Plan: Cont meds Cont tx Cont PT pain meds monitor drain
--- NOTE | 2016-08-11 13:00 | CP.PCM.PN ---
Subjective - Date & Time of Evaluation Date of Evaluation: 08/09/16 Time of Evaluation: 10:00 - Subjective Subjective: Patient is doing well Had a filter inserted. Able to ambulate Has no leg pain Has no SOB. Objective - Vital Signs/Intake and Output Vital Signs (last 24 hours): Temp Pulse Resp BP Pulse Ox 99.3 F 60 20 130/70 97 08/11/16 12:50 08/11/16 12:50 08/11/16 12:50 08/11/16 12:50 08/11/16 12:50 Intake and Output: 08/11/16 08/11/16 06:59 18:59 Intake Total 850 950 Output Total 10 0 Balance 840 950 - Medications Medications: Current Medications Amlodipine Besylate (Norvasc) 10 mg PO DAILY [facility] Last Admin: 08/11/16 08:41 Dose: 10 mg Dextrose (Dextrose 50% Inj) 0 ml IV STAT PRN; Protocol PRN Reason: Hyglycemia Protocol Dextrose (Glutose 15) 0 gm PO ONCE PRN; Protocol PRN Reason: Hypoglycemia Protocol Famotidine (Pepcid) 40 mg PO DAILY [facility] Last Admin: 08/11/16 08:00 Dose: 40 mg Gabapentin (Neurontin) 300 mg PO TID [facility] Last Admin: 08/11/16 08:40 Dose: 300 mg Glucagon (Glucagen Diagnostic Kit) 0 mg IM STAT PRN; Protocol PRN Reason: Hypoglycemia Protocol Cefazolin Sodium 1 gm/ Sodium (Chloride) 100 mls @ 100 mls/hr IVPB Q8 [facility] Last Admin: 08/11/16 08:53 Dose: 100 mls/hr Insulin Human Lispro (Humalog) 0 units SC ACTID [facility] PRN Reason: Protocol Last Admin: 08/11/16 08:39 Dose: Not Given Lidocaine (Lidoderm) 1 ea TD DAILY PRN PRN Reason: BACK PAIN Metformin HCl (Glucophage) 500 mg PO BID [facility] Last Admin: 08/05/16 17:31 Dose: Not Given Metoprolol Tartrate (Lopressor) 50 mg PO BID [facility] Last Admin: 08/11/16 08:53 Dose: 50 mg Sitagliptin Phosphate (Januvia) 100 mg PO DAILY [facility] Valsartan (Diovan) 320 mg PO DAILY [facility] Last Admin: 08/11/16 08:38 Dose: 320 mg - Labs Labs: 08/08/16 05:05 08/08/16 05:05 PT 10.6 Seconds (9.8-13.1) 08/05/16 11:09 INR 0.9 (0.9-1.2) 08/05/16 11:09 APTT 33.3 Seconds (25.6-37.1) 08/05/16 11:09 - Head Exam Head Exam: NORMAL INSPECTION - Eye Exam Eye Exam: Normal appearance - ENT Exam ENT Exam: Mucous Membranes Moist - Cardiovascular Exam Cardiovascular Exam: REGULAR RHYTHM - GI/Abdominal Exam GI & Abdominal Exam: Normal Bowel Sounds - Neurological Exam Neurological Exam: Awake, Oriented x3 - Psychiatric Exam Psychiatric exam: Normal Mood Assessment and Plan (1) Lumbar stenosis Status: Acute (2) Lumbar spondylosis Status: Acute (3) Intractable low back pain Status: Acute (4) Hypertension Status: Acute (5) Diabetes mellitus type 2 in obese Status: Acute (6) DVT (deep venous thrombosis) Status: Acute - Assessment and Plan (Free Text) Plan: Con tmeds Cont tx Cont PT
--- NOTE | 2016-08-11 13:02 | CP.PCM.PN ---
Subjective - Date & Time of Evaluation Date of Evaluation: 08/10/16 Time of Evaluation: 09:30 - Subjective Subjective: Patient is dong well Still with slight drainage [place] no leg pain Has no SOB. Objective - Vital Signs/Intake and Output Vital Signs (last 24 hours): Temp Pulse Resp BP Pulse Ox 99.3 F 60 20 130/70 97 08/11/16 12:50 08/11/16 12:50 08/11/16 12:50 08/11/16 12:50 08/11/16 12:50 Intake and Output: 08/11/16 08/11/16 06:59 18:59 Intake Total 850 950 Output Total 10 0 Balance 840 950 - Medications Medications: Current Medications Amlodipine Besylate (Norvasc) 10 mg PO DAILY [facility] Last Admin: 08/11/16 08:41 Dose: 10 mg Dextrose (Dextrose 50% Inj) 0 ml IV STAT PRN; Protocol PRN Reason: Hyglycemia Protocol Dextrose (Glutose 15) 0 gm PO ONCE PRN; Protocol PRN Reason: Hypoglycemia Protocol Famotidine (Pepcid) 40 mg PO DAILY [facility] Last Admin: 08/11/16 08:00 Dose: 40 mg Gabapentin (Neurontin) 300 mg PO TID [facility] Last Admin: 08/11/16 08:40 Dose: 300 mg Glucagon (Glucagen Diagnostic Kit) 0 mg IM STAT PRN; Protocol PRN Reason: Hypoglycemia Protocol Cefazolin Sodium 1 gm/ Sodium (Chloride) 100 mls @ 100 mls/hr IVPB Q8 [facility] Last Admin: 08/11/16 08:53 Dose: 100 mls/hr Insulin Human Lispro (Humalog) 0 units SC ACTID [facility] PRN Reason: Protocol Last Admin: 08/11/16 08:39 Dose: Not Given Lidocaine (Lidoderm) 1 ea TD DAILY PRN PRN Reason: BACK PAIN Metformin HCl (Glucophage) 500 mg PO BID [facility] Last Admin: 08/05/16 17:31 Dose: Not Given Metoprolol Tartrate (Lopressor) 50 mg PO BID [facility] Last Admin: 08/11/16 08:53 Dose: 50 mg Sitagliptin Phosphate (Januvia) 100 mg PO DAILY [facility] Valsartan (Diovan) 320 mg PO DAILY [facility] Last Admin: 08/11/16 08:38 Dose: 320 mg - Labs Labs: 08/08/16 05:05 08/08/16 05:05 PT 10.6 Seconds (9.8-13.1) 08/05/16 11:09 INR 0.9 (0.9-1.2) 08/05/16 11:09 APTT 33.3 Seconds (25.6-37.1) 08/05/16 11:09 - Head Exam Head Exam: NORMAL INSPECTION - Eye Exam Eye Exam: Normal appearance - ENT Exam ENT Exam: Mucous Membranes Moist - Respiratory Exam Respiratory Exam: Clear to Ausculation Bilateral - Cardiovascular Exam Cardiovascular Exam: REGULAR RHYTHM - GI/Abdominal Exam GI & Abdominal Exam: Normal Bowel Sounds - Neurological Exam Neurological Exam: Oriented x3 - Psychiatric Exam Psychiatric exam: Normal Mood Assessment and Plan (1) Lumbar stenosis Status: Acute (2) Lumbar spondylosis Status: Acute (3) Intractable low back pain Status: Acute (4) Hypertension Status: Acute (5) Diabetes mellitus type 2 in obese Status: Acute (6) DVT (deep venous thrombosis) Status: Acute - Assessment and Plan (Free Text) Plan: cont meds cont tx dc plan for am cont PT.
--- NOTE | 2016-08-11 13:04 | CP.PCM.DIS ---
Provider - Provider Date of Admission: 08/05/16 10:58 Attending physician: Sundeep Graf MD Time Spent in preparation of Discharge (in minutes): 30 Diagnosis - Discharge Diagnosis (1) Lumbar stenosis Status: Acute (2) Lumbar spondylosis Status: Acute (3) Intractable low back pain Status: Acute (4) Hypertension Status: Acute (5) Diabetes mellitus type 2 in obese Status: Acute (6) DVT (deep venous thrombosis) Status: Acute Hospital Course - Lab Results Lab Results: Most Recent Lab Values WBC 11.2 K/uL (4.8-10.8) H 08/08/16 05:05 RBC 4.16 Mil/uL (4.40-5.90) L 08/08/16 05:05 Hgb 12.9 g/dL (12.0-18.0) 08/08/16 05:05 Hct 37.6 % (35.0-51.0) 08/08/16 05:05 MCV 90.5 fl (80.0-94.0) 08/08/16 05:05 MCH 30.9 pg (27.0-31.0) 08/08/16 05:05 MCHC 34.2 g/dL (33.0-37.0) 08/08/16 05:05 RDW 13.7 % (11.5-14.5) 08/08/16 05:05 Plt Count 216 K/uL (130-400) 08/08/16 05:05 MPV 7.8 fl (7.2-11.7) 08/07/16 05:00 Neut % (Auto) 71.1 % (50.0-75.0) 08/07/16 05:00 Lymph % (Auto) 20.9 % (20.0-40.0) 08/07/16 05:00 [place] % (Auto) 7.4 % (0.0-10.0) 08/07/16 05:00 Eos % (Auto) 0.5 % (0.0-4.0) 08/07/16 05:00 Baso % (Auto) 0.1 % (0.0-2.0) 08/07/16 05:00 Neut # 8.8 K/uL (1.8-7.0) H 08/07/16 05:00 Lymph # 2.6 K/uL (1.0-4.3) 08/07/16 05:00 [place] # 0.9 K/uL (0.0-0.8) H 08/07/16 05:00 Eos # 0.1 K/uL (0.0-0.7) 08/07/16 05:00 Baso # 0.0 K/uL (0.0-0.2) 08/07/16 05:00 PT 10.6 Seconds (9.8-13.1) 08/05/16 11:09 INR 0.9 (0.9-1.2) 08/05/16 11:09 APTT 33.3 Seconds (25.6-37.1) 08/05/16 11:09 Sodium 139 mmol/l (132-148) 08/08/16 05:05 Potassium 4.0 MMOL/L (3.6-5.0) 08/08/16 05:05 Chloride 105 mmol/L (98-107) 08/08/16 05:05 Carbon Dioxide 26 mmol/L (22-30) 08/08/16 05:05 Anion Gap 11 (10-20) 08/08/16 05:05 BUN 11 mg/dl (9-20) 08/08/16 05:05 Creatinine 0.9 mg/dL (0.8-1.5) 08/08/16 05:05 Est GFR ( Amer) > 60 08/08/16 05:05 Est GFR (Non-Af Amer) > 60 08/08/16 05:05 POC Glucose (mg/dL) 164 mg/dL (65-110) H 08/11/16 11:22 Random Glucose 106 mg/dL (75-110) 08/08/16 05:05 Calcium 8.9 mg/dL (8.4-10.2) 08/08/16 05:05 Total Bilirubin 0.5 mg/dl (0.2-1.3) 08/05/16 11:09 AST 35 U/L (17-59) 08/05/16 11:09 ALT 44 U/L (21-72) 08/05/16 11:09 Alkaline Phosphatase 83 U/L (38-126) 08/05/16 11:09 Total Protein 8.1 G/DL (6.3-8.2) 08/05/16 11:09 Albumin 4.4 g/dL (3.5-5.0) 08/05/16 11:09 Globulin 3.7 gm/dL (2.2-3.9) 08/05/16 11:09 Albumin/Globulin Ratio 1.2 (1.0-2.1) 08/05/16 11:09 Urine Color Yellow (YELLOW) 08/05/16 08:59 Urine Clarity Clear (Clear) 08/05/16 08:59 Urine pH 5.0 (5.0-8.0) 08/05/16 08:59 Ur Specific [place] 1.016 (1.003-1.030) 08/05/16 08:59 Urine Protein Negative mg/dL (NEGATIVE) 08/05/16 08:59 Urine Glucose (UA) Neg mg/dL (Normal) 08/05/16 08:59 Urine Ketones Negative mg/dL (NEGATIVE) 08/05/16 08:59 Urine Blood Negative (NEGATIVE) 08/05/16 08:59 Urine Nitrate Negative (NEGATIVE) 08/05/16 08:59 Urine Bilirubin Negative (NEGATIVE) 08/05/16 08:59 Urine Urobilinogen 0.2-1.0 mg/dL (0.2-1.0) 08/05/16 08:59 Ur Leukocyte Esterase Neg [place]lin/uL (Negative) 08/05/16 08:59 Urine RBC (Auto) 2 /hpf (0-3) 08/05/16 08:59 Urine Microscopic WBC < 1 /hpf (0-5) 08/05/16 08:59 Blood Type O POSITIVE 08/05/16 11:09 Blood Type Confirm O POSITIVE 08/05/16 12:50 Antibody Screen Negative 08/05/16 11:09 BBK History Checked No verified bt 08/05/16 11:09 - Hospital Course Hospital Course: This is a 71 y/o male admitted for Lumbar laminectomy for multilevel spondylosis. Patient has a hx of atrial fibrillation and was placed on Eliquis which was stopped prior to surgery. He did well with his surgery but a doppler US of the lower ext postop showed a DVT on the right leg which probably had been present prior to sugery. A filter was placed and was started on phys therapy. he continued to have a lot of draianage hence was kept for a while . He was sent home in stable condition and was advised to re start Eliquis a week after his discharge. Discharge Exam - Head Exam Head Exam: NORMAL INSPECTION - Eye Exam Eye Exam: Normal appearance - Respiratory Exam Respiratory Exam: NORMAL BREATHING PATTERN - Cardiovascular Exam Cardiovascular Exam: REGULAR RHYTHM - GI/Abdominal Exam GI & Abdominal Exam: Normal Bowel Sounds - Neurological Exam Neurological exam: CN II-XII Intact - Psychiatric Exam Psychiatric exam: Normal Mood Discharge Plan - Follow Up Plan Condition: FAIR Disposition: HOME/ ROUTINE Additional Instructions: cont meds restart Eliquis in a week advised follow up with Dr Hilario.
--- NOTE | 2016-08-20 15:01 | PCM.OP ---
Operative Report - Operative Report Date of Surgery/Procedure: 08/07/16 Time of Surgery/Procedure: 16:20 Surgeon: Adenike Wick Anesthesia/Sedation: Local anesthesia, 1% lidocaine. Pre-Operative Diagnosis: Deep Vein Thrombosis Post-Operative Diagnosis: Deep Vein Thrombosis Indication for Surgery: Deep Vein Thrombosis/IVC Insertion Procedure/Operation Description: 71 y/o male pt with multiple medical problems. He is going for surgery, he has acute Deep Vein Thrombosis and requested to insert an IVC filter. Risk and benefit of the surgery was explained to him and his daughter who is a nurse. They agree to proceed with the surgery. Patient came to the operating room. He was lying in a supine position and prepped and draped in a sterile fashion. 1% Lidocaine used to infiltrate the right groin. Ultrasound guide access of the right common femoral vein done using the micropuncture access needle. Wire insert through the needle in micropuncture sheath over the wire. We passed an osteo 5 light wire through the sheath up to the thoracic aorta and the femoral. For the wire repair, 6.5 [place] sheath over the wire and we carried it up to the level of the mid lumbar debris. Wire and the was removed and renogram was performed with localized site of the renal veins. We positioned the sheath under the renal veins below the level of the renal veins. Filter was inserted. We used the option filter, retrievable one and we pushed it through the sheath up to a desirable level and we pulled the sheath back to deploy the filter. The filter was straight in a good position. The renogram was done through the sheath confirmed with zero complication. The sheath was removed and pressure was applied for 10 minutes. No complications. Complications: None Discharge & Condition: Pt tolerated the procedure well and after 10 minutes of pressure he was transferred to recovery room and after that he was transferred to the floor. No complications during the procedure.
--- NOTE | 2016-08-27 08:49 | OP ---
PROCEDURE DATE: 08/07/2016 PREOPERATIVE DIAGNOSES: Lumbar spondylosis and compression at L2-3. POSTOPERATIVE DIAGNOSIS: Herniated lumbar disk calcified at L2-3. PROCEDURE: L2-3 lumbar laminectomy, removal of herniated disk (calcified) at L2-3, and L2-3 posterolateral fusion. SURGEON: Tarik Hilario MD. ESTIMATE CLERK: Flower Rios PA-C, who stayed throughout the case and helped me perform the surgery from beginning to end. DESCRIPTION OF PROCEDURE: The patient was brought to the operating room, anesthetized with general endotracheal anesthesia, placed in a prone position on a Dalton table, care was taken to protect all pressure points. Back of the lumbar area thoroughly prepped and draped in sterile manner after marking was consistent for lumbar laminectomy at L2-3. After prepping and draping the area, skin has been incised. Bleeding skins have been controlled with bipolar billet header. After using the Bovie billet header, paraspinal muscles have been detached, and also attachment of spinous process lamina of L2-3. At this point, fluoroscopy has been used in order to confirm this level. By using Leksell Rongeur, the spinous process of L2-3 have been removed. By using a high speed, the lamina had been tunneled to actual thickness. By using a *------* Kerrison punch, *------* lamina, medial patellar facets, ligament of flavum have been removed. On the right side, there was significant compression from what appears to be a synovial cyst, however, it was found to be a herniated disk fragment coming out from the disk space compressing this area. Various sizes of microdissection techniques and tools have been used in order to remove this disk material that was compressing the spinal dura. Later, a part of that had been stuck to the dura that has been left in place, which was calcified. Adequate decompression has been achieved by removing middle part of the facet as well. After that, lateral aspect of the facet joint, transverse process have been decorticated, demineralized bone placed in the area achieving a posterolateral fusion. Hemostasis best achieved. Dalton drain placed to the wound. *------* incision. Muscles and fascia closed with 1 Vicryl, subcutaneous with 3 Vicryl, and skin has been closed with intradermal 3-0 Vicryl stitches. The patient tolerated the procedure. After procedure, mobilized to recovery room in stabilized condition. Tarik Hilario MD
== END 2016-08-11 13:06 | disposition home or self-care (01) | DRG 460 ==
LOC: H.ER 10:24 → H.ERHOLD 10:58 → H.MEDSURG1 16:22 → H.TEL 08-06 14:46
PROVIDERS: ADMIT Family Medicine; ATTEND Family Medicine
PROC: 0SG00K1 Fusion of Lumbar Vertebral Joint with Nonautologous Tissue Substitute, Posterior Approach, Posterior Column, Open Approach (ICD-10-PCS; 2016-08-07)
PROC: 0ST20ZZ Resection of Lumbar Vertebral Disc, Open Approach (ICD-10-PCS; 2016-08-07)
PROC: 06H03DZ Insertion of Intraluminal Device into Inferior Vena Cava, Percutaneous Approach (ICD-10-PCS; principal; 2016-08-07 15:30)
DX: M47.26 Other spondylosis with radiculopathy, lumbar region (principal); I82.411 Acute embolism and thrombosis of right femoral vein; I48.0 Paroxysmal atrial fibrillation; I82.431 Acute embolism and thrombosis of right popliteal vein; M48.06 Spinal stenosis, lumbar region; E11.9 Type 2 diabetes mellitus without complications; I10 Essential (primary) hypertension; I83.90 Asymptomatic varicose veins of unspecified lower extremity; R20.9 Unspecified disturbances of skin sensation; M51.26 Other intervertebral disc displacement, lumbar region